=== PATIENT | male | born 1935 | race Caucasian/White ===

== ENCOUNTER 2017-01-17 15:05 | Outpatient (CLI) | payer MEDICARE ==
--- NOTE | 2017-01-17 16:09 | RAD ---
EXAM: LEFT ANKLE THREE VIEWS 01/17/17 HISTORY: Pain. COMPARISON: None. FINDINGS: Mild lateral soft tissue swelling. Joint spaces appear to be preserved. No fracture. Vascular calcif ications are identified. There are degenerative changes in the talonavicular joint space. IMPRESSION: Lateral soft tissue swelling. No fracture. POS: [facility]
== END 2017-01-17 15:06 | disposition home or self-care (01) ==
LOC: MADRAD 15:05
PROVIDERS: ATTEND Family Medicine
DX: M25.572 Pain in left ankle and joints of left foot (principal); M79.89 Other specified soft tissue disorders

== ENCOUNTER 2017-01-29 08:39 | Outpatient (CLI) | payer MEDICARE ==
[2017-01-29 09:15] LABS: #Basophils 0.1 thou/uL (0.0-0.2); #Eosinphils 0.5 thou/uL (0.0-0.7); #Lymphocytes 1.5 thou/uL (1.20-3.40); #Monocytes 0.7 thou/uL (0.11-0.59); #Neutrophils 3.4 thou/uL (1.40-6.50); %Basophils 2.4 % (0.0-1.0); %Eosinophils 7.9 % (0.0-10.0); %Lymphocytes 23.8 % (21.0-51.0); %Monocytes 11.5 % (0.0-10.0); %Neutrophils 54.5 % (42.0-75.0); Mean Corpuscular HGB CONC 32.6 g/dL (32.0-36.0); Mean Corpuscular Hemoglobin 32.1 pg (27.0-31.0); Mean Corpuscular Volume 98.5 fl (80.0-94.0); Mean Platelet Volume 7.4 fL (7.4-10.4); Platelet Count 203 thou/uL (130-400); RBC Distribution Width 13.3 % (11.5-14.5); Red Blood Cell (RBC) Count 4.06 mill/uL (4.70-6.10); White Blood Cell (WBC) Count 6.2 thou/uL (4.8-10.8)
[2017-01-29 09:55] LABS: ALT (SGPT) 14 U/L (8-55); AST (SGOT) 13 U/L (5-34); Albumin 3.8 g/dL (3.4-4.8); Alkaline Phosphatase 74 U/L (40-150); Anion Gap 13 mmol/L (10-20); BUN (Urea Nitrogen) 29 mg/dL (8.4-25.7); Bilirubin, Direct 0.3 mg/dL (0.1-0.3); Bilirubin, Total 0.6 mg/dL (0.2-1.2); Calc. Creatinine Clearance 0 mL/min (70-130); Calcium 9.1 mg/dL (7.8-10.44); Carbon Dioxide 24 mmol/L (23-31); Cardiac Risk 3.5 (Less than 4.5); Chloride 110 mmol/L (98-107); Cholesterol 112 mg/dl (< 200 Desired); Estimated GFR-MDRD 47; Glucose 114 mg/dL (83-110); HDL Cholesterol 32 mg/dL (>60 Neg Risk); LDL Cholesterol, Calculated 70 mg/dL; Potassium 4.2 mmol/L (3.5-5.1); Protein, Total 6.9 g/dL (5.8-8.1); Sodium 143 mmol/L (136-145); Triglycerides 51 mg/dL (Less than 150); Uric Acid 5.7 mg/dL (3.5-7.2)
== END 2017-01-29 08:40 ==
LOC: MADLABBHPM 08:39
PROVIDERS: ATTEND Family Medicine
DX: I48.91 Unspecified atrial fibrillation (principal); I10 Essential (primary) hypertension; M10.9 Gout, unspecified
CPT/HCPCS: 36415; 80048; 80061; 80076; 84550; 85025

== ENCOUNTER 2017-01-31 04:28 | Emergency (ER) | payer MEDICARE ==
[2017-01-31] MEDS ORDERED: Dexamethasone 10 MG/ML VIAL ONE ×2 (04:54→09:05)
[2017-01-31] MEDS ORDERED: methylPREDNISolone Sod Succ/PF 125 MG/2 ML VIAL ONE ×2 (04:54→09:05)
[2017-01-31] MEDS ORDERED: Benzonatate 100 MG CAP ONE (05:15)
[2017-01-31] MEDS ORDERED: Sodium Chloride 0.9% 1,000 ML BAG ONE (06:32)
--- NOTE | 2017-01-31 08:03 | RAD ---
CHEEST 1 VIEW: HISTORY: Dyspnea. COMPARISON: 08/30/15. FINDINGS: Cardiac silhouette is magnified and enlarged. Pulmonary vasculature is engorged with patchy bilater al perihilar and bibasilar infiltrates. Mediastinum is midline. No lobar consolidation or pneumoth orax are apparent. Metallic fragment over the right lung base is similar in appearance to the prior study. IMPRESSION: Congestive heart failure. POS: [facility]
[2017-01-31] MEDS ORDERED: Furosemide 40 MG/4 ML VIAL ONE (09:05)
== END 2017-01-31 06:10 | disposition home or self-care (01) ==
LOC: MADERS 04:28
DX: R06.02 Shortness of breath (principal); I48.91 Unspecified atrial fibrillation; I10 Essential (primary) hypertension; Z87.891 Personal history of nicotine dependence; Z79.899 Other long term (current) drug therapy
CPT/HCPCS: 71010; 94640; 96361; 96374; 96375; J1100; J1940; J2930; J7620

== ENCOUNTER 2017-01-31 08:31 | Emergency (ER) | payer MEDICARE ==
[2017-01-31 09:23] LABS: #Lymphocytes 0.8 thou/uL (1.20-3.40); #Monocytes 0.1 thou/uL (0.11-0.59); #Neutrophils 9.3 thou/uL (1.40-6.50); %Basophils 0.4 % (0.0-1.0); %Lymphocytes 7.5 % (21.0-51.0); %Monocytes 1.2 % (0.0-10.0); %Neutrophils 90.9 % (42.0-75.0); Hemoglobin 14.1 g/dL (14.0-18.0); Mean Corpuscular HGB CONC 33.3 g/dL (32.0-36.0); Mean Corpuscular Hemoglobin 32.3 pg (27.0-31.0); Mean Corpuscular Volume 96.9 fl (80.0-94.0); Mean Platelet Volume 7.7 fL (7.4-10.4); Platelet Count 203 thou/uL (130-400); RBC Distribution Width 13.4 % (11.5-14.5); Red Blood Cell (RBC) Count 4.38 mill/uL (4.70-6.10); White Blood Cell (WBC) Count 10.2 thou/uL (4.8-10.8)
[2017-01-31 09:34] LABS: INR-International Normal Ratio 1.7; Prothrombin Time 20.1 SEC (12.0-14.7)
[2017-01-31 09:44] LABS: ALT (SGPT) 16 U/L (8-55); AST (SGOT) 16 U/L (5-34); Alkaline Phosphatase 73 U/L (40-150); Anion Gap 15 mmol/L (10-20); BUN (Urea Nitrogen) 27 mg/dL (8.4-25.7); Bilirubin, Total 1.1 mg/dL (0.2-1.2); CK (CPK) 68 U/L (30-200); Calc. Creatinine Clearance 0 mL/min (70-130); Carbon Dioxide 18 mmol/L (23-31); Chloride 110 mmol/L (98-107); Estimated GFR-MDRD 51; Globulin 3.3 g/dL (2.4-3.5); Glucose 175 mg/dL (83-110); Magnesium 2.2 mg/dL (1.6-2.6); Potassium 4.1 mmol/L (3.5-5.1); Protein, Total 7.3 g/dL (5.8-8.1); Sodium 139 mmol/L (136-145)
[2017-01-31 09:47] LABS: CKMB 1.5 ng/mL (0-6.6); Troponin I 0.035 ng/mL (< 0.028)
[2017-01-31 09:53] LABS: Bilirubin Negative (Negative); Blood, Urine Small (Negative); Clarity Clear (Clear); Glucose, Urine (Dipstick) Negative (Negative); Leukocyte Negative (Negative); Nitrite Negative (Negative); Protein, Urine (Dipstick) Negative (Neg-Trace); Specific Gravity, Urine 1.015 (1.005-1.030); Urobilinogen 0.2 mg/dL (0.2-1.0); pH, Urine 5.5 (5.0-9.0)
[2017-01-31 09:59] LABS: Bacteria/HPF Rare-Few HPF (None Seen); Squamous Epithelial 0-3 HPF (0-3); WBC/HPF 0-3 HPF (0-3)
== END 2017-01-31 13:18 | disposition short-term general hospital (02) ==
LOC: MADERS 08:31
DX: I11.0 Hypertensive heart disease with heart failure (principal); I50.9 Heart failure, unspecified; I48.91 Unspecified atrial fibrillation; Z87.891 Personal history of nicotine dependence; Z79.899 Other long term (current) drug therapy
CPT/HCPCS: 51702; 71010; 80053; 81001; 82553; 83735; 83880; 84484; 85025; 85610; 85730; 87040; 93005; 94640; 94760; 96361; 96374; 96375; J1100; J1940; J2930; J7050; J7620

== ENCOUNTER 2017-02-11 07:54 | Outpatient (CLI) | payer MEDICARE ==
[2017-02-11 08:27] LABS: Anion Gap 17 mmol/L (10-20); BUN (Urea Nitrogen) 31 mg/dL (8.4-25.7); Calc. Creatinine Clearance 0 mL/min (70-130); Calcium 8.8 mg/dL (7.8-10.44); Carbon Dioxide 21 mmol/L (23-31); Chloride 110 mmol/L (98-107); Estimated GFR-MDRD 55; Glucose 108 mg/dL (83-110); Potassium 3.9 mmol/L (3.5-5.1); Sodium 144 mmol/L (136-145)
== END 2017-02-11 07:55 | disposition home or self-care (01) ==
LOC: MADLAB 07:54
PROVIDERS: ATTEND Specialist
DX: I50.9 Heart failure, unspecified (principal); I48.2 Chronic atrial fibrillation; Z79.899 Other long term (current) drug therapy
CPT/HCPCS: 36415; 80048

== ENCOUNTER 2017-05-15 08:05 | Outpatient (CLI) | payer MEDICARE ==
[2017-05-15 08:22] LABS: #Basophils 0.1 thou/uL (0.0-0.2); #Eosinphils 0.4 thou/uL (0.0-0.7); #Lymphocytes 1.6 thou/uL (1.20-3.40); #Monocytes 0.8 thou/uL (0.11-0.59); #Neutrophils 3.5 thou/uL (1.40-6.50); %Basophils 1.5 % (0.0-1.0); %Eosinophils 6.9 % (0.0-10.0); %Lymphocytes 24.7 % (21.0-51.0); %Monocytes 11.8 % (0.0-10.0); %Neutrophils 55.1 % (42.0-75.0); Hemoglobin 12.9 g/dL (14.0-18.0); Mean Corpuscular HGB CONC 31.4 g/dL (32.0-36.0); Mean Corpuscular Hemoglobin 31.4 pg (27.0-31.0); Mean Corpuscular Volume 100.1 fl (80.0-94.0); Mean Platelet Volume 7.7 fL (7.4-10.4); Platelet Count 193 thou/uL (130-400); RBC Distribution Width 13.3 % (11.5-14.5); White Blood Cell (WBC) Count 6.4 thou/uL (4.8-10.8)
[2017-05-15 09:10] LABS: ALT (SGPT) 14 U/L (8-55); AST (SGOT) 15 U/L (5-34); Albumin 3.7 g/dL (3.4-4.8); Alkaline Phosphatase 74 U/L (40-150); Anion Gap 13 mmol/L (10-20); BUN (Urea Nitrogen) 23 mg/dL (8.4-25.7); Bilirubin, Direct 0.4 mg/dL (0.1-0.3); Bilirubin, Total 0.9 mg/dL (0.2-1.2); Calc. Creatinine Clearance 0 mL/min (70-130); Calcium 8.8 mg/dL (7.8-10.44); Carbon Dioxide 25 mmol/L (23-31); Cardiac Risk 3.4 (Less than 4.5); Chloride 110 mmol/L (98-107); Cholesterol 119 mg/dl (< 200 Desired); Estimated GFR-MDRD 54; Glucose 110 mg/dL (83-110); HDL Cholesterol 35 mg/dL (>60 Neg Risk); LDL Cholesterol, Calculated 76 mg/dL; Potassium 3.7 mmol/L (3.5-5.1); Protein, Total 6.7 g/dL (5.8-8.1); Sodium 144 mmol/L (136-145); Triglycerides 42 mg/dL (Less than 150)
== END 2017-05-15 08:06 | disposition home or self-care (01) ==
LOC: MADLABBHPM 08:05
PROVIDERS: ATTEND Family Medicine
DX: N18.3 Chronic kidney disease, stage 3 (moderate) (principal); D63.1 Anemia in chronic kidney disease
CPT/HCPCS: 36415; 80048; 80061; 80076; 85025

== ENCOUNTER 2017-06-15 02:08 | Emergency (ER) | payer MEDICARE ==
[2017-06-15 03:08] LABS: #Basophils 0.1 thou/uL (0.0-0.2); #Eosinphils 0.3 thou/uL (0.0-0.7); #Lymphocytes 1.6 thou/uL (1.20-3.40); #Monocytes 0.7 thou/uL (0.11-0.59); %Basophils 1.4 % (0.0-1.0); %Eosinophils 3.4 % (0.0-10.0); %Lymphocytes 21.3 % (21.0-51.0); %Monocytes 9.3 % (0.0-10.0); %Neutrophils 64.6 % (42.0-75.0); Hemoglobin 13.4 g/dL (14.0-18.0); Mean Corpuscular HGB CONC 33.2 g/dL (32.0-36.0); Mean Corpuscular Hemoglobin 32.7 pg (27.0-31.0); Mean Corpuscular Volume 98.4 fl (80.0-94.0); Mean Platelet Volume 7.8 fL (7.4-10.4); Platelet Count 190 thou/uL (130-400); RBC Distribution Width 13.1 % (11.5-14.5); Red Blood Cell (RBC) Count 4.12 mill/uL (4.70-6.10); White Blood Cell (WBC) Count 7.7 thou/uL (4.8-10.8)
[2017-06-15 03:23] LABS: INR-International Normal Ratio 1.3; PTT 33.2 SEC (22.9-36.1); Prothrombin Time 16.7 SEC (12.0-14.7)
[2017-06-15 03:29] LABS: Anion Gap 17 mmol/L (10-20); BUN (Urea Nitrogen) 27 mg/dL (8.4-25.7); Calc. Creatinine Clearance 0 mL/min (70-130); Carbon Dioxide 25 mmol/L (23-31); Chloride 108 mmol/L (98-107); Estimated GFR-MDRD 55; Glucose 132 mg/dL (83-110); Potassium 3.6 mmol/L (3.5-5.1); Sodium 146 mmol/L (136-145)
[2017-06-15 03:30] LABS: Troponin I 0.047 ng/mL (< 0.028)
[2017-06-15 03:33] LABS: CKMB 1.8 ng/mL (0-6.6)
[2017-06-15] MEDS ORDERED: Furosemide 40 MG/4 ML VIAL ONE (03:41)
--- NOTE | 2017-06-15 08:49 | RAD ---
1 VIEW CHEST: Date: 06/15/17 HISTORY: Dyspnea. COMPARISON: 01/21/17. FINDINGS: Enlarged cardiac silhouette. Pulmonary vessels are prominent. Patchy interstitial opacities. There i s obscuration of the descending thoracic aorta and left hemidiaphragm. Left lower lobe infiltrate ca nnot be excluded. No pneumothorax. IMPRESSION: 1. Congestive heart failure. 2. Left lower lobe infiltrate. Continued surveillance. POS: [facility]
== END 2017-06-15 04:55 | disposition short-term general hospital (02) ==
LOC: MADERS 02:08
DX: I50.9 Heart failure, unspecified (principal); I48.91 Unspecified atrial fibrillation; I10 Essential (primary) hypertension; E78.00 Pure hypercholesterolemia, unspecified; Z87.891 Personal history of nicotine dependence; Z79.899 Other long term (current) drug therapy
CPT/HCPCS: 71010; 80048; 82553; 83880; 84484; 85025; 85610; 85730; 93005; 94760; 96374; J1940

== ENCOUNTER 2017-08-12 12:49 | Emergency (ER) | payer MEDICARE ==
[2017-08-12] MEDS ORDERED: Acetaminophen 500 MG TAB ONE (13:22)
[2017-08-12] MEDS ORDERED: Amoxicillin/Potassium Clav 500 MG TAB ONE (13:22)
[2017-08-12] MEDS ORDERED: Amoxicillin/Potassium Clav 875 MG TAB ONE (13:23)
--- NOTE | 2017-08-12 13:37 | RAD ---
PORTABLE CHEST ONE VIEW: Date: 08-12-17 Time: 1:04 p.m. History: Dyspnea. FINDINGS/IMPRESSION: Comparison made with exam of 01-31-17. The heart is enlarged. Tiny amount of metallic density in the right lower chest is again seen. The po ssibility of opacity in the retrocardiac region cannot be excluded. The remainder of the lung davis are otherwise clear. No pneumothoraces or effusions are identified. There is no evidence of asuncion pul monary edema. POS: [facility]
[2017-08-12 13:50] LABS: Anion Gap 18 mmol/L (10-20); BUN (Urea Nitrogen) 25 mg/dL (8.4-25.7); Calc. Creatinine Clearance 0 mL/min (70-130); Calcium 8.6 mg/dL (7.8-10.44); Carbon Dioxide 20 mmol/L (23-31); Chloride 107 mmol/L (98-107); Estimated GFR-MDRD 52; Glucose 213 mg/dL (83-110); Potassium 4.1 mmol/L (3.5-5.1); Sodium 141 mmol/L (136-145)
[2017-08-12 13:52] LABS: Eosinophils 1 % (0-10); Hemoglobin 13.8 g/dL (14.0-18.0); Lymphocytes 4 % (21-51); MDiff Complete? YES; Mean Corpuscular HGB CONC 32.6 g/dL (32.0-36.0); Mean Corpuscular Hemoglobin 31.6 pg (27.0-31.0); Monocytes 2 % (0-10); Neutrophil 83 % (42-75); PLT Morphology Comment Appears Adequate; Platelet Count 163 thou/uL (130-400); RBC Distribution Width 12.9 % (11.5-14.5); RBC Morphology Normal; Reactive Lymphocytes 10 % (0-10); Red Blood Cell (RBC) Count 4.36 mill/uL (4.70-6.10); White Blood Cell (WBC) Count 8.7 thou/uL (4.8-10.8)
[2017-08-12] MEDS ORDERED: Furosemide 40 MG TAB ONE (14:12)
== END 2017-08-12 14:20 | disposition home or self-care (01) ==
LOC: MADERS 12:49
DX: J11.1 Influenza due to unidentified influenza virus with other respiratory manifestations (principal); J20.9 Acute bronchitis, unspecified; I48.91 Unspecified atrial fibrillation; I11.0 Hypertensive heart disease with heart failure; I50.9 Heart failure, unspecified; I49.9 Cardiac arrhythmia, unspecified; Z87.891 Personal history of nicotine dependence; Z79.899 Other long term (current) drug therapy
CPT/HCPCS: 36415; 71010; 80048; 83880; 85025; J7620

== ENCOUNTER 2017-09-01 16:08 | Outpatient (CLI) | payer MEDICARE ==
--- NOTE | 2017-09-01 16:57 | RAD ---
TWO VIEWS CHEST: Comparison: 08-30-15 History: Chest wall pain on the right side after a fall. FINDINGS: Two views of the chest shows enlarged but stable cardiomediastinal silhouette. There is no evidence o f consolidation, mass, or pleural effusion. No displaced rib fracture is seen. Degenerative changes a re seen in the spine. IMPRESSION: Cardiomegaly without evidence of acute cardiopulmonary disease. POS: [facility]
--- NOTE | 2017-09-01 17:27 | CT ---
CT OF HEAD NONCONTRAST: Indication: Fall with facial injury. Comparison: 03-17-14 FINDINGS: No intracranial hemorrhage, mass effect, midline shift or ventriculomegaly. There is prominent soft t issue emphysema of the right face including the right orbit and right straightening press operator space. Osseous struc tures of the facial region are incompletely assessed on the basis of this exam due to incompletely im aging as well as patient motion. There is prominent opacification of the left maxillary sinus and sca ttered paranasal sinus mucosal thickening. IMPRESSION: 1. No acute intracranial hemorrhage or mass effect. 2. Prominent facial injury including the right orbit with associated orbital emphysema and deformity of the right orbital floor. Recommend dedicated CT of face to further characterize. Telephone call placed to Dr. Jamie Kim, and to the [place] [facility], where ER nurse stated he woul d contact Dr. Kim, at [phone] 09-01-17. POS: [facility]
--- NOTE | 2017-09-01 17:46 | CT ---
CT OF FACE NONCONTRAST: Indication: Post-traumatic facial injury, pain. FINDINGS: There is a right orbital floor fracture with associated prominent volume of retrobulbar emphysema. Th ere is also prominent periorbital soft tissue emphysema of the preseptal and bucca regions. Dissectin g air density is also present within the right hvac journeyman space and the right submandibular region. S cattered paranasal sinus opacification is present, some of which contains intrinsic density with lobu lar morphology. This may relate to an entity such as superimposed fungal sinusitis. The point lay ira intrao cular lenses are absent. There is no evidence of retrobulbar hemorrhage of significance visualized. N o displaced fracture of either zygomatic arch. Nasal bones are intact as are the pterygoid plates. No displaced fracture of the mandible visualized and the temporomandibular joints maintain appropriate alignment. IMPRESSION: 1. Right orbital floor fracture. There is prominent volume of right sided retrobulbar emphysema prese nt. 2. Prominent right facial soft tissue emphysema. Telephone call placed to Dr. Jamie Kim, and to the [place] [facility], where ER nurse stated he woul d contact Dr. Kim, at [phone] 09-01-17. POS: [facility]
== END 2017-09-01 16:09 | disposition home or self-care (01) ==
LOC: MADRAD 16:08
PROVIDERS: ATTEND Family Medicine
DX: S29.9XXA Unspecified injury of thorax, initial encounter (principal); S09.93XA Unspecified injury of face, initial encounter; S02.31XA Fracture of orbital floor, right side, initial encounter for closed fracture; J43.8 Other emphysema
CPT/HCPCS: 70450; 70486; 71046

== ENCOUNTER 2018-11-15 18:16 | Emergency (ER) | payer MEDICARE ==
[2018-11-15 18:31] LABS: #Basophils 0.2 thou/uL (0.0-0.2); #Eosinphils 0.4 thou/uL (0.0-0.7); #Lymphocytes 1.6 thou/uL (1.20-3.40); #Monocytes 0.8 thou/uL (0.11-0.59); #Neutrophils 3.9 thou/uL (1.40-6.50); %Basophils 2.2 % (0.0-1.0); %Eosinophils 5.2 % (0.0-10.0); %Lymphocytes 23.4 % (21.0-51.0); %Monocytes 11.9 % (0.0-10.0); %Neutrophils 57.4 % (42.0-75.0); Hemoglobin 13.6 g/dL (14.0-18.0); Mean Corpuscular HGB CONC 31.4 g/dL (32.0-36.0); Mean Corpuscular Hemoglobin 30.4 pg (27.0-31.0); Mean Corpuscular Volume 96.9 fL (78.0-98.0); Mean Platelet Volume 6.6 fL (7.4-10.4); Platelet Count 199 thou/uL (130-400); RBC Distribution Width 13.3 % (11.5-14.5); Red Blood Cell (RBC) Count 4.48 mill/uL (4.70-6.10); White Blood Cell (WBC) Count 6.8 thou/uL (4.8-10.8)
--- NOTE | 2018-11-15 18:40 | RAD ---
FPortable chest: HISTORY: Dyspnea COMPARISON: 08/12/2017 FINDINGS:There is cardiomegaly. Mild vascular congestion. No focal infiltrate or significant effusion . Similar findings were noted on prior exam. IMPRESSION:Cardiomegaly and mild vascular congestion.
[2018-11-15 18:50] LABS: ALT (SGPT) 12 U/L (8-55); AST (SGOT) 14 U/L (5-34); Albumin 4.3 g/dL (3.4-4.8); Alkaline Phosphatase 88 U/L (40-150); Anion Gap 18 mmol/L (10-20); BUN (Urea Nitrogen) 29 mg/dL (8.4-25.7); Bilirubin, Total 0.9 mg/dL (0.2-1.2); Calc. Creatinine Clearance 0 mL/min (70-130); Calcium 9.5 mg/dL (7.8-10.44); Carbon Dioxide 24 mmol/L (23-31); Chloride 108 mmol/L (98-107); Estimated GFR-MDRD 35; Globulin 3.5 g/dL (2.4-3.5); Glucose 112 mg/dL (83-110); Protein, Total 7.8 g/dL (5.8-8.1); Sodium 146 mmol/L (136-145)
[2018-11-15 19:07] LABS: CKMB 1.3 ng/mL (0-6.6)
[2018-11-15] MEDS ORDERED: Aspirin Chewable 81 MG TAB ONE (19:51)
[2018-11-15] MEDS ORDERED: Nitroglycerin 2% Ointment 1 INCH/1 GM Packet ONE (19:51)
[2018-11-15] MEDS ORDERED: Furosemide 40 MG/4 ML VIAL ONE (19:51)
== END 2018-11-15 20:39 | disposition short-term general hospital (02) ==
LOC: MADERS 18:16
DX: I11.0 Hypertensive heart disease with heart failure (principal); I50.9 Heart failure, unspecified; I48.91 Unspecified atrial fibrillation; F41.9 Anxiety disorder, unspecified; Z87.891 Personal history of nicotine dependence; Z79.891 Long term (current) use of opiate analgesic; Z79.899 Other long term (current) drug therapy
CPT/HCPCS: 71045; 80053; 82553; 83880; 84484; 85025; 93005; 96374; J1940

== ENCOUNTER 2019-06-21 11:15 | Emergency (ER) | payer MEDICARE ==
[2019-06-21] MEDS ORDERED: Acetaminophen 325 MG TAB ONE (12:00)
[2019-06-21 12:12] LABS: Bilirubin Small (Negative); Blood, Urine Large (Negative); Glucose, Urine (Dipstick) Negative (Negative); Leukocyte Negative (Negative); Nitrite Negative (Negative); Protein, Urine (Dipstick) 30 mg/dL (Neg-Trace); Urobilinogen 0.2 mg/dL (Less than 2)
--- NOTE | 2019-06-21 12:12 | RAD ---
PORTABLE CHEST 1 VIEW: Date: 06/21/19 Time: 1148 hours HISTORY: Cough. FINDINGS/IMPRESSION: Comparison made with exam of 11/15/18. Interval placement of left-sided pacemaker device is seen. The heart is enlarged. There is pulmonary vascular congestion. There is an opacity in the right lower lung. No pneumothoraces or large effusion s are seen. A follow-up exam should be obtained to exclude mass. POS: [facility]
[2019-06-21 12:17] LABS: INR-International Normal Ratio 1.7; PTT 37.1 SEC (22.9-36.1); Prothrombin Time 20.1 SEC (12.0-14.7)
[2019-06-21 12:20] LABS: ALT (SGPT) 16 U/L (8-55); AST (SGOT) 15 U/L (5-34); Albumin 3.7 g/dL (3.4-4.8); Alkaline Phosphatase 54 U/L (40-110); Anion Gap 17 mmol/L (10-20); BUN (Urea Nitrogen) 40 mg/dL (8.4-25.7); Bilirubin, Total 2.8 mg/dL (0.2-1.2); CK (CPK) 68 U/L (30-200); Calc. Creatinine Clearance 0 mL/min (70-130); Calcium 8.8 mg/dL (7.8-10.44); Carbon Dioxide 20 mmol/L (23-31); Chloride 108 mmol/L (98-107); Estimated GFR-MDRD 39; Globulin 2.8 g/dL (2.4-3.5); Glucose 165 mg/dL (83-110); Potassium 4.1 mmol/L (3.5-5.1); Protein, Total 6.5 g/dL (5.8-8.1); Sodium 141 mmol/L (136-145)
[2019-06-21 12:20] LABS: Clarity Hazy (Clear); RBC/HPF Greater than 50 HPF (0-3); WBC/HPF 0-3 HPF (0-3)
[2019-06-21 12:21] LABS: Bacteria/HPF Rare-Few HPF (None Seen)
[2019-06-21 12:21] LABS: Band 11 % (5-11); Eosinophils 2 % (0-10); Hemoglobin 12.7 g/dL (14.0-18.0); Lymphocytes 3 % (21-51); MDiff Complete? YES; Mean Corpuscular HGB CONC 30.8 g/dL (32.0-36.0); Mean Corpuscular Hemoglobin 29.9 pg (27.0-31.0); Mean Corpuscular Volume 97.3 fL (78.0-98.0); Mean Platelet Volume 7.1 fL (7.4-10.4); Monocytes 4 % (0-10); Neutrophil 80 % (42-75); Platelet Count 136 thou/uL (130-400); Platelet Morphology Comment Appears Adequate; RBC Distribution Width 13.5 % (11.5-14.5); Red Blood Cell (RBC) Count 4.23 mill/uL (4.70-6.10); White Blood Cell (WBC) Count 21.1 thou/uL (4.8-10.8)
[2019-06-21 12:28] LABS: Lipase Less than 4 U/L (8-78)
[2019-06-21 12:37] LABS: CKMB 1.7 ng/mL (0-6.6)
== END 2019-06-21 13:20 | disposition short-term general hospital (02) ==
LOC: MADERS 11:15
DX: A41.9 Sepsis, unspecified organism (principal); J18.9 Pneumonia, unspecified organism; I11.0 Hypertensive heart disease with heart failure; I50.9 Heart failure, unspecified; I49.9 Cardiac arrhythmia, unspecified; I48.91 Unspecified atrial fibrillation; E78.00 Pure hypercholesterolemia, unspecified; F41.9 Anxiety disorder, unspecified; Z87.891 Personal history of nicotine dependence
CPT/HCPCS: 36415; 71045; 80053; 81003; 81015; 82550; 82553; 83605; 83690; 83880; 84484; 85025; 85610; 85730; 87040; 87070; 87205; 87804; 93005; 94760; 96365; J1956

== ENCOUNTER 2019-07-05 14:50 | Outpatient (CLI) | payer MEDICARE ==
--- NOTE | 2019-07-05 15:16 | RAD ---
EXAM: Chest PA and lateral: HISTORY: Cough COMPARISON: 06/21/2019 FINDINGS: Stable left-sided transvenous defibrillator. Heart: Persistent cardiomegaly. Aorta: Unremarkable Pulmonary vessels: Mildly prominent Costophrenic angles: Visualized costophrenic angles demonstrate bilateral pleural effusions. Lungs: Patchy interstitial and alveolar opacities. Pneumothorax: No pneumothorax Osseous structures: No osseous abnormalities IMPRESSION: Cardiomegaly. Pulmonary vascular prominence. Pleural effusion. Patchy interstitial and alveolar opaci ties. Congestive heart failure.
== END 2019-07-05 14:51 | disposition home or self-care (01) ==
LOC: MADRAD 14:50
PROVIDERS: ATTEND Family Medicine
DX: J18.9 Pneumonia, unspecified organism (principal); I51.7 Cardiomegaly; J90 Pleural effusion, not elsewhere classified; I50.9 Heart failure, unspecified; R91.8 Other nonspecific abnormal finding of lung field
CPT/HCPCS: 71046

== ENCOUNTER 2019-12-10 14:28 | Inpatient (IN) | payer MEDICARE ==
[2019-12-10] MEDS ORDERED: Acetaminophen 500 MG TAB ONE ×2 (14:51)
[2019-12-10 15:34] LABS: #Basophils 0.1 thou/uL (0.0-0.2); #Lymphocytes 0.3 thou/uL (1.20-3.40); #Monocytes 0.5 thou/uL (0.11-0.59); %Basophils 1.1 % (0.0-1.0); %Eosinophils 0.2 % (0.0-10.0); %Lymphocytes 3.7 % (21.0-51.0); %Monocytes 5.2 % (0.0-10.0); %Neutrophils 89.9 % (42.0-75.0); Hemoglobin 11.6 g/dL (14.0-18.0); Mean Corpuscular HGB CONC 31.8 g/dL (32.0-36.0); Mean Corpuscular Hemoglobin 29.4 pg (27.0-31.0); Mean Corpuscular Volume 92.6 fL (78.0-98.0); Mean Platelet Volume 6.4 fL (7.4-10.4); Platelet Count 158 thou/uL (130-400); RBC Distribution Width 12.9 % (11.5-14.5); Red Blood Cell (RBC) Count 3.95 mill/uL (4.70-6.10); White Blood Cell (WBC) Count 8.9 thou/uL (4.8-10.8)
[2019-12-10 15:38] LABS: Bilirubin Negative (Negative); Blood, Urine Moderate (Negative); Clarity Cloudy (Clear); Glucose, Urine (Dipstick) Negative (Negative); Leukocyte Large (Negative); Nitrite Positive (Negative); Protein, Urine (Dipstick) 100 mg/dL (Neg-Trace); Urobilinogen 0.2 mg/dL (Less than 2)
[2019-12-10 15:40] LABS: Squamous Epithelial 0-3 HPF (0-3); WBC/HPF Greater Than 50 HPF (0-3)
[2019-12-10 15:41] LABS: Bacteria/HPF Rare-Few HPF (None Seen); RBC/HPF 21-50 HPF (0-3)
[2019-12-10] MEDS ORDERED: Sodium Chloride 0.9% 100 ML ONE ×2 (15:44→17:37)
[2019-12-10] MEDS ORDERED: Sodium Chloride 0.9% 1,000 ML ONE (15:44)
[2019-12-10] MEDS ORDERED: cefTRIAXone\\ROCEPHIN 2 GM VIAL ONE (15:44)
[2019-12-10 15:48] LABS: ALT (SGPT) 15 U/L (8-55); AST (SGOT) 16 U/L (5-34); Albumin 3.6 g/dL (3.4-4.8); Alkaline Phosphatase 71 U/L (40-110); Anion Gap 16 mmol/L (10-20); BUN (Urea Nitrogen) 24 mg/dL (8.4-25.7); Calc. Creatinine Clearance 0 mL/min (70-130); Calcium 8.6 mg/dL (7.8-10.44); Carbon Dioxide 24 mmol/L (23-31); Chloride 102 mmol/L (98-107); Estimated GFR-MDRD 42; Globulin 3.6 g/dL (2.4-3.5); Glucose 160 mg/dL (83-110); Potassium 3.8 mmol/L (3.5-5.1); Protein, Total 7.2 g/dL (5.8-8.1); Sodium 138 mmol/L (136-145)
--- NOTE | 2019-12-10 16:16 | RAD ---
CHEST ONE VIEW: 12/10/19 HISTORY: Fever. COMPARISON: Radiograph 07/05/19. FINDINGS: Heart size is enlarged. Mild background pulmonary edema. Cardiac device is similar. No pneumothorax. Moderate degenerative changes of the both acromioclavicular joints. No acute osseous abnormality. IMPRESSION: Cardiomegaly and moderate pulmonary edema. POS: [facility]
--- NOTE | 2019-12-10 16:23 | RAD ---
LEFT HIP TWO VIEW: 12/10/19 HISTORY: Injury. COMPARISON: None. FINDINGS: Moderate vascular calcifications. Mild joint space narrowing. Moderate acetabular osteophytes. No acute displaced fracture or malalignment. Left obturator ring is intact. IMPRESSION: Degenerative changes. No acute osseous abnormality. POS: [facility]
--- NOTE | 2019-12-10 16:25 | RAD ---
LUMBAR SPINE TWO VIEWs: 12/10/19 INDICATION: Back pain. COMPARISON: None. FINDINGS: No acute fracture or subluxation is evident. There is moderate spondylosis of the lumbar spine. there is bilateral parts defects at L5. There is grade I anterolisthesis. There are vascular calcification s of the aortic arch. IMPRESSION: 1. 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 2. Moderate to severe spondylosis of the lumbar spine. POS: [facility]
[2019-12-10] MEDS ORDERED: Ibuprofen 600 MG TAB ONE (16:46)
[2019-12-10] MEDS ORDERED: Vancomycin 1.5 GRAM/300 ML BAG 1.5 GM/300 ML BAG ONE (17:37)
[2019-12-10] MEDS ORDERED: Vancomycin HCl 500 MG VIAL ONE (17:37)
[2019-12-10 19:49] VITALS: BMI 23.8
[2019-12-10] MEDS ORDERED: Bisacodyl 10 MG SUPP PR PRN (21:10)
[2019-12-10] MEDS ORDERED: Ondansetron ODT 4 MG TAB SL PRN (21:10)
[2019-12-10] MEDS ORDERED: Polyethylene Glycol 3350 17 GM Packet PO PRN (21:14)
[2019-12-10] MEDS ORDERED: Sodium Chloride 0.65% Nasal 44 ML BOT EA NARE PRN (21:15)
[2019-12-10] MEDS ORDERED: Sodium Chloride 0.9% 1,000 ML IV SCH (21:15)
[2019-12-10] MEDS ORDERED: Mirtazapine 15 MG TAB PO SCH (21:45)
[2019-12-10] MEDS ORDERED: Melatonin 3 MG TAB PO SCH (21:45)
[2019-12-11 05:38] LABS: #Basophils 0.1 thou/uL (0.0-0.2); #Eosinphils 0.1 thou/uL (0.0-0.7); #Lymphocytes 0.8 thou/uL (1.20-3.40); #Monocytes 0.6 thou/uL (0.11-0.59); #Neutrophils 5.3 thou/uL (1.40-6.50); %Basophils 1.4 % (0.0-1.0); %Eosinophils 1.2 % (0.0-10.0); %Lymphocytes 11.2 % (21.0-51.0); %Monocytes 8.9 % (0.0-10.0); %Neutrophils 77.4 % (42.0-75.0); Hemoglobin 10.2 g/dL (14.0-18.0); Mean Corpuscular HGB CONC 32.2 g/dL (32.0-36.0); Mean Corpuscular Hemoglobin 29.9 pg (27.0-31.0); Mean Corpuscular Volume 92.8 fL (78.0-98.0); Mean Platelet Volume 6.7 fL (7.4-10.4); Platelet Count 120 thou/uL (130-400); Red Blood Cell (RBC) Count 3.41 mill/uL (4.70-6.10); White Blood Cell (WBC) Count 6.8 thou/uL (4.8-10.8)
[2019-12-11 05:54] LABS: Anion Gap 12 mmol/L (10-20); BUN (Urea Nitrogen) 27 mg/dL (8.4-25.7); Calc. Creatinine Clearance 41 mL/min (70-130); Calcium 7.9 mg/dL (7.8-10.44); Carbon Dioxide 24 mmol/L (23-31); Chloride 103 mmol/L (98-107); Estimated GFR-MDRD 42; Glucose 101 mg/dL (83-110); Potassium 3.4 mmol/L (3.5-5.1); Sodium 136 mmol/L (136-145)
[2019-12-11] MEDS: Spironolactone 25 MG TAB PO SCH (08:06)
[2019-12-11] MEDS: Carvedilol 6.25 MG TAB PO SCH ×2 (08:07→16:34)
[2019-12-11] MEDS: Fluticasone Propionate Nasal Spray 16 gm Bottle NASAL SCH (08:07)
[2019-12-11] MEDS: Famotidine 20 MG TAB PO SCH ×2 (08:07→21:19)
[2019-12-11] MEDS: Apixaban 5 MG TAB PO SCH ×2 (08:07→21:18)
[2019-12-11] MEDS: Furosemide 40 MG TAB PO SCH (08:07)
[2019-12-11] MEDS: Multivit, Therapeutic 1 TAB PO SCH (08:07)
[2019-12-11] MEDS: Dutasteride 0.5 MG CAP PO SCH (08:07)
[2019-12-11] MEDS: Tamsulosin HCl 0.4 MG CAP PO SCH (08:07)
[2019-12-11] MEDS: Acetaminophen 325 MG TAB PO PRN ×2 (09:53→16:34)
[2019-12-11] MEDS ORDERED: cefTRIAXone\\ROCEPHIN 2 GM in Sodium Chloride 0.9% 100 ML IVPB SCH (16:00)
--- NOTE | 2019-12-11 16:51 | HP ---
The patient was admitted on the late afternoon of 12/10/2019. CHIEF COMPLAINT: Fever and a fall. HISTORY OF PRESENT ILLNESS: The patient is an 84-year-old white male who has a history of hypertension, cardiomyopathy, chronic atrial fibrillation, for which he is on Eliquis. He also has obstructive sleep apnea, for which he uses a CPAP. He has urinary retention and has a suprapubic catheter that was placed by CT guidance on 11/03 and had been recently changed out. He has been treated in the past for urinary tract infection. He lives at home where he ambulates with the use of a walker. His serves as his primary caregiver. The patient said that he thought he had been doing very well. He had just showered and gotten out of the shower and fell and hit his left shoulder on the sink. He did not think he was injured. He did not hit his head. He did not lose consciousness. After a couple of hours, he got very weak and apparently began running a fever up to 102.9. He was brought to the emergency room where he was evaluated there. His blood pressure was in the 90 systolic. His pulse was in the 70 and 80s, and he had a temperature of 102.3. He did not appear septic on exam. He was alert and talkative. His lab studies showed a sodium of 138, potassium of 3.9, BUN 24, creatinine 1.6 with a GFR of 42, glucose 160, albumin 3.6, bilirubin 1. His H and H were 11.6 and 36.6 with a white cell count of 8900 with 90% segs, 4% lymphocytes , and a platelet count of 158,000. His cath UA from the suprapubic catheter shows a specific gravity of 1.020, nitrite was positive, rbc's were 20 to 50, wbc's too numerous to count. The patient had a chest x-ray, which showed cardiomegaly, and some pulmonary vascular congestion. His LS spine series showed spondylosis and bilateral pars defect at L5 causing a grade 1 anterior listhesis. The chest x- ray also showed that he had advanced arthritis of the AC joint and the glenohumeral joint. The patient had 2 blood cultures drawn and he was then started on a low infusion of fluids at 30 mL per hour or just to keep open rate and was started on Rocephin and vancomycin. The patient was seen on the morning of 12/11/2019. He said he was feeling good. He was just sore and he thinks it is from the fall. He has not had any more fever. He has not complained of any shortness of breath. PAST HISTORY: CT-guided placement of a suprapubic catheter on 11/04/2019. Hospitalized following a fall from 09/06/2019 until 09/10/2019. He had sustained a nondisplaced fracture of the right femoral neck for which he underwent an open reduction and internal fixation on 09/08. He was then hospitalized at [facility] for extended care from 09/10 to 09/27. The patient has cardiomyopathy that is nonischemic. His echocardiogram in June 2019 showed an ejection fraction of 35% to 45%. Heart cath on 01/31/2017, showed reduced left ventricular systolic function and no occlusive coronary artery disease. Previous echocardiogram showed global hypokinesis of the left ventricle and biatrial enlargement that was severe. The patient has hypertension. He was hospitalized at the [facility] in June 2019 for right lower lobe pneumonia. 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 The patient has obstructive sleep apnea, for which he sleeps under a CPAP. The patient has had a tonsillectomy, cholecystectomy, bladder surgery, endoscopic sinus surgery in November 2017, biventricular AICD placement in November 2018, chronic atrial fibrillation rate controlled and on Eliquis, glaucoma. PRESENT MEDICATIONS: 1. Acetaminophen 325 mg 2 every 6 hours as needed. 2. Eliquis 5 mg b.i.d. 3. Carvedilol 6.25 mg b.i.d. 4. Avodart 0.5 mg daily. 5. Famotidine 20 mg b.i.d. 6. Uloric 40 mg q.h.s. 7. Flonase 2 sprays in each nostril daily. 8. Furosemide 40 mg daily. 9. Latanoprost 0.005% one drop left eye at bedtime. 10. Melatonin 6 mg at h.s. 11. Mirtazapine 30 mg q.h.s. 12. Multivitamin daily. 13. Zofran orally disintegrating tablets 4 mg every 6 hours p.r.n. 14. MiraLAX 17 g in 8 ounces of water daily as needed. 15. Entresto one b.i.d. 16. Nasal saline p.r.n. 17. Spironolactone 12.5 mg daily. 18. Tamsulosin 0.4 mg q.h.s. ALLERGIES: NO KNOWN ALLERGIES. REVIEW OF SYSTEMS: GENERAL: The patient said that he has not had any recent change in his weight. HEAD AND NECK: No complaints. He has problems with some nasal congestion periodically for which he is on the nasal spray. CARDIOVASCULAR: No chest pain. PULMONARY: No shortness of breath. GI: No nausea or vomiting. No abdominal pain. Intermittent problems with constipation that are controlled. : The patient has a history of BPH and eventual urinary retention requiring a suprapubic catheter. NEUROPSYCHIATRIC: No complaints. ACTIVITIES OF DAILY LIVING: The patient said he is able to dress himself and shower himself. He gets around with the use of a walker with wheels. He lives with his , who is his primary caregiver, who assists him with all his instrumental ADLs. HABITS: Alcohol, none. Tobacco none. SOCIAL HISTORY: The patient is , lives with his . CODE STATUS: DNR. PHYSICAL EXAMINATION: GENERAL: Shows a very pleasant 84-year-old white male, who is alert and talkative, and appears in no distress. VITAL SIGNS: His temperature is 97.8, pulse 82, respirations 18, O2 saturation 97% on room air, blood pressure 99/54. His weight is 177.8. HEENT: Head is normocephalic and atraumatic. Eyes, pupils are equal, round, and reactive. Ears are normal. Mouth and throat normal. The patient has many teeth that are missing. NECK: Carotids are equal and strong. No bruits. Thyroid not enlarged. LUNGS: Clear. HEART: Regular rate. CHEST: The patient has AICD pacemaker in the left upper anterior chest. ABDOMEN: Soft. No organomegaly. No areas of tenderness. GENITOURINARY: The patient has a suprapubic catheter in the hypogastric midline. There is no surrounding redness. There is a 22-Belarusian catheter present. EXTREMITIES: Lower extremities, no edema. The patient has some atrophy of the left lower leg and difficulty dorsiflexing the left foot secondary to polio in childhood. NEUROLOGICAL: He is alert and oriented x3 and recognized me and knows that he is in the hospital. IMPRESSION: 1. Urinary tract infection. a. Presenting with fever of 102.9. b. Presently afebrile. Blood cultures, no growth. Urine culture pending as of 12/11/2019. 2. Nonischemic cardiomyopathy. a. Last echocardiogram in June 2019 showed ejection fraction of 35% to 45% with bilateral severe enlargement of the atriums. b. Heart catheterization in 01/2017 showed no occlusive coronary artery disease. c. Status post automatic implantable cardioverter-defibrillator pacemaker placement. d. No evidence of acute congestive heart failure on exam. 3. Chronic atrial fibrillation. a. Rate control. b. On Eliquis. 4. Obstructive sleep apnea, for which he is on continuous positive airway pressure when sleeping. 5. Urinary retention. a. Status post CT-guided suprapubic catheter placement on 11/04/2019. b. Catheter changed out on admission in the emergency room on 11/08. 6. 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 7. Low back pain secondary to spondylosis and recent fall. 8. Fall on 12/10/2019 with complaint of shoulder pain. a. On exam, there was no bruising. No areas of point tenderness. b. 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 PLAN: The patient has been admitted to the hospital and started on IV vancomycin and ceftriaxone for presumptive urinary tract infection. He has had no more fever. The blood cultures have no growth. Urine culture is pending. We will stop the keep open rate of the saline, but keep IV access for continuation of the antibiotics. We will have Physical Therapy work with him due to the recent fall. We will continue his routine medications, see orders. Code status is DNR. Job ID: [id number] [facility]
[2019-12-11] MEDS ORDERED: Vancomycin HCl 1 GM in Sodium Chloride 0.9% 250 ML 250 ML IVPB SCH (18:00)
[2019-12-11] MEDS ORDERED: Latanoprost 0.005% Ophth Soln 2.5 ml Bottle L EYE SCH (21:00)
[2019-12-11] MEDS ORDERED: Melatonin 3 MG TAB PO SCH (21:00)
[2019-12-11] MEDS ORDERED: Febuxostat 40 MG TAB PO SCH (21:00)
[2019-12-11] MEDS ORDERED: Mirtazapine 15 MG TAB PO SCH (21:00)
[2019-12-12] MEDS: Acetaminophen 325 MG TAB PO PRN ×2 (00:07→07:58)
[2019-12-12 05:50] LABS: Band 32 % (5-11); Eosinophils 1 % (0-10); Hemoglobin 10.3 g/dL (14.0-18.0); Lymphocytes 16 % (21-51); MDiff Complete? YES; Mean Corpuscular Hemoglobin 29.6 pg (27.0-31.0); Mean Corpuscular Volume 92.4 fL (78.0-98.0); Mean Platelet Volume 6.9 fL (7.4-10.4); Monocytes 5 % (0-10); Neutrophil 46 % (42-75); Platelet Count 127 thou/uL (130-400); RBC Distribution Width 13.1 % (11.5-14.5); White Blood Cell (WBC) Count 8.1 thou/uL (4.8-10.8)
[2019-12-12 05:58] LABS: Anion Gap 12 mmol/L (10-20); BUN (Urea Nitrogen) 24 mg/dL (8.4-25.7); Calc. Creatinine Clearance 47 mL/min (70-130); Calcium 7.5 mg/dL (7.8-10.44); Carbon Dioxide 21 mmol/L (23-31); Chloride 108 mmol/L (98-107); Estimated GFR-MDRD 48; Glucose 116 mg/dL (83-110); Potassium 3.3 mmol/L (3.5-5.1); Sodium 138 mmol/L (136-145)
[2019-12-12] MEDS: Carvedilol 6.25 MG TAB PO SCH (07:58)
[2019-12-12] MEDS: Famotidine 20 MG TAB PO SCH (07:58)
[2019-12-12] MEDS: Dutasteride 0.5 MG CAP PO SCH (07:58)
[2019-12-12] MEDS: Furosemide 40 MG TAB PO SCH (07:58)
[2019-12-12] MEDS: Fluticasone Propionate Nasal Spray 16 gm Bottle NASAL SCH (07:58)
[2019-12-12] MEDS: Spironolactone 25 MG TAB PO SCH (07:59)
[2019-12-12] MEDS: Apixaban 5 MG TAB PO SCH (07:59)
[2019-12-12] MEDS: Multivit, Therapeutic 1 TAB PO SCH (07:59)
[2019-12-12] MEDS: Tamsulosin HCl 0.4 MG CAP PO SCH (07:59)
[2019-12-12] MEDS ORDERED: Acetaminophen 325 MG TAB PO PRN (09:05)
[2019-12-12 11:20] VITALS: BP 94/52; TEMP 99.2
--- NOTE | 2019-12-12 11:36 | PRG ---
DATE OF SERVICE: 12/12/2019 SUBJECTIVE: The patient has been up with his walker and he is now sitting down on the seat of the walker resting. He said he is doing okay, just feels kind of achy. He has used the Incapmar pump providing moist heat to his low back, which he said helped. OBJECTIVE: GENERAL: The patient is sitting up in a chair. He is alert, talkative, does not appear in any acute distress. VITAL SIGNS: His temp during the night audrey to 102.6. This morning, it is 99.5. His pulse is 82, respirations 16, O2 saturation 96% on room air, blood pressure 111/59. LUNGS: Clear. HEART: Has an irregularly irregular rhythm. EXTREMITIES: Lower extremities have no edema. There is no bruising over the back of the shoulders. LABORATORY DATA: His lab studies this morning shows an H and H of 10.3 and 32.0 with a white blood cell count of 8100 with 46% segs, 32% bands, 16% lymphocytes. Platelet count was 127,000. Sodium is 138, potassium 3.3, BUN 24, creatinine 1.4 , GFR up to 48, glucose 116. The patient's initial 2 blood cultures were reported out as negative, the subsequent culture showed that one of the two grew a Staph aureus, probable methicillin sensitive Staph aureus. Culture and sensitivity to follow. The 2nd blood culture is now growing a gram-positive cocci. 2/2 cultures are positive. The sensitivity and culture on both of these are pending. Two blood cultures were drawn again yesterday on 12/11/2019. Results of these are pending. His urine culture just shows the young culture, reports are pending. ASSESSMENT: 1. Urinary tract infection/pyelonephritis. a. Presenting with a temperature of 102.9. b. Temperature persists up to 102.7 as of 12/11. c. Urine culture pending as of 12/11. 2. Bacteremia. a. Initial blood cultures from 12/10/19 growing gram-positive cocci, one showing methicillin-susceptible staphylococcus aureus. Further identification pending. b. Repeat blood cultures drawn on 12/10. Results pending. c. Etiology not known. 3. Nonischemic cardiomyopathy. a. Last echocardiogram June 2019 showed ejection fraction of 35% to 45% with bilateral severe enlargement of the atrium. The heart cath in January 2017 showed no occlusive coronary artery disease. b. Status post automatic implantable cardioverter-defibrillator pacemaker placement. c. No evidence of acute congestive heart failure as of 12/11. 4. Chronic atrial fibrillation. a. Rate control. b. On Eliquis. 5. Obstructive sleep apnea, for which he is on continuous positive airway pressure when sleeping. 6. Urinary retention. a. Status post CT-guided suprapubic catheter placement on 11/04/19. Catheter changed out 12/07/19. b. Catheter changed out on admission in the emergency room on 12/10/19. c. Urine this morning is clear, lightly yellow color as of 12/11. 7. 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 8. Low back pain with history of lumbar spondylosis and recent fall. 9. Fall on 12/10/2019 with complaint of left shoulder pain. a. On exam, no evidence of any bruising or point tenderness. b. 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 PLAN: We will continue the vancomycin and Rocephin The culture of the urine is pending. The etiology of this bacteremia is at this point not known. Will need echocardiogram to ensure there is no vegetation in the heart. Presently patient looks like he is he is doing okay and his fever is down to 99.7. Anticipate that he will need to be transferred for echocardiogram and ID consult. Job ID: [id number] [facility]
--- NOTE | 2019-12-13 06:25 | PQF ---
[employer] Crystal Reports Winform ViewerHarper, Fabio SimmsFRANCISCO Copeland MD [id number] CLINICAL DOCUMENTATION CLARIFICATION FORM: POST DISCHARGE Addendum to original discharge summary date: ___12/12/19 Late entry note date: __12/13/19 DATE: 12/13/2019 ATTN: Francisco Kim Please exercise your independent, professional judgment in responding to the clarification form. Clinical indicators are provided on the bottom of this form for your review Please check appropriate box(es): [ ] Sepsis [ y] Bacteremia [ ] Localized infection without sepsis [ ] Other diagnosis [ ] Unable to determine In addition, please specify: Present on Admission (POA): [ y ] Yes [ ] No [ ] Unable to determine For continuity of documentation, please document condition throughout progress notes and discharge summary. Thank You. CLINICAL INDICATORS - SIGNS / SYMPTOMS / LABS Bacteremia, initial blood cultures from 12/09 growing gram-positive cocci, one showing methicillin-susceptible staphylococcus aureus. Repeat blood cultures drawn on 12/10. Results pending. Etiology not known - Progress note dated 12/11 by Francisco Brown UTI, presents with a fever of 102.9 - H and P dated 12/09 by Francisco Brown The etiology of this bacteremia is at this point not known. Will need echocardiogram to ensure there is no vegetation in the heart - Progress note dated 12/11 by Francisco Brown RISK FACTORS UTI/pyelonephritis - Progress note dated 12/11 by Francisco Brown TREATMENTS: IV Rocephin from 12/09 to 12/11 - Medications IV Vancomycin from 12/09 to 12/11 - Medications IV fluids from 12/10 to 12/11 - Medications (This form is maintained as a part of the permanent medical record) 2014 [facility]. All Rights Reserved [email or web address]
--- NOTE | 2019-12-13 06:36 | PQF ---
[facility] Pick Up Man Crystal Reports Winform ViewerHarper, FabioFRANCISCO Powers MD [id number] CLINICAL DOCUMENTATION CLARIFICATION FORM: POST DISCHARGE Addendum to original discharge summary date: ___12/12/19 Late entry note date: 12/13/19 DATE: 12/13/2019 ATTN: Francisco Brown Please exercise your independent, professional judgment in responding to the clarification form. Clinical indicators are provided on the bottom of this form for your review Please check appropriate box(s): [ y ] UTI is associated with indwelling suprapubic catheter [ ] UTI is not associated with indwelling suprapubic catheter [ ] Other diagnosis [ ] Unable to determine In addition, please specify: Present on Admission (POA): [ y] Yes [ ] No [ ] Unable to determine CLINICAL INDICATORS - SIGNS / SYMPTOMS / LABS ED final progress diagnosis is acute pyelonephritis. Indwelling suprapubic catheter - ED provider report dated 12/09 Urinary tract infection, presenting with fever of 102.9 - H and P dated 12/09 by Francisco Brown Urinary retention, status post suprapubic catheter placement. Catheter changed out on admission in the ER on 11/08 - H and P dated 12/09 by Francisco Brown RISK FACTORS Urinary retention - Progress note dated 12/11 by Francisco Brown TREATMENT: IV Rocephin from 12/09 to 12/11 - Medications IV Vancomycin from 12/09 to 12/11 - Medications (This form is maintained as a part of the permanent medical record) 2014 [employer]. All Rights Reserved [email or web address]
--- NOTE | 2019-12-13 10:17 | DIS ---
DATE OF ADMISSION: 12/10/2019 DATE OF DISCHARGE: 12/12/2019 Admitted to [facility] acute care on 12/09 and transferred on 12/12/2019. FINAL DIAGNOSES: 1. Staphylococcus bacteremia. a. Initial blood cultures from 12/10/2019 are growing methicillin-susceptible Staphylococcus aureus and the second bottle is growing Staph species. b. Repeat blood cultures drawn on 12/10 are pending. c. Etiology of the Staph bacteremia not known. 2. Urinary tract infection/pyelonephritis. a. Presenting with temperature of 102.9. b. Temperature persisted up to 102.7 as of 12/11. c. Urine culture pending as of 12/11. 3. Nonischemic cardiomyopathy. a. Last echocardiogram June 2019 showed ejection fraction of 35% to 45% with bilateral severe enlargement of the atrium. Heart cath in January 2017 showed no occlusive coronary artery disease. b. Status post automatic implantable cardioverter-defibrillator pacemaker placement. c. No evidence of acute congestive failure as of 12/11. 4. Chronic atrial fibrillation. a. Rate control. b. On Eliquis. 5. Obstructive sleep apnea, for which he is on continuous positive airway pressure when sleeping. 6. Urinary retention. a. Status post suprapubic catheter placement on 11/04/2019. Catheter change out on 12/07/2019. b. Catheter changed out on admission in the emergency room on 12/09. c. Urine clear and light yellow color as of 12/11. 7. 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 8. Low back pain with history of lumbar spondylosis and recent fall. 9. Fall on 12/10/2019 with complaint of left shoulder pain. a. On exam, no evidence of any bruising or point tenderness. b. 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 SUMMARY: The patient is an 84-year-old white male, who has a history of nonischemic cardiomyopathy, chronic atrial fibrillation, and an AICD/pacemaker. He has a suprapubic catheter that was placed on 11/04/2019 for urinary retention and this was changed out on 12/07/2019. The patient lives at home with his , who is his primary caregiver. He is independent of his ADLs and ambulates with the use of a walker. On the day of admission, 12/09, he was getting out of the shower and fell and hit his left shoulder on the sink. He did not lose consciousness, but needed to help getting up. He rested for a while in bed and then just continued to have pain and extreme weakness, prompting his visit to the emergency room. In the emergency room, he was found to have a temperature of 102.9. His chest x-ray showed chronic cardiomegaly and pulmonary vascular congestion. It also showed the severe arthritis of the glenohumeral joint on the left in the AC joint. LS spine series showed spondylosis. X-ray of the left hip showed no fracture. The patient's urine showed 20 to 50 rbc's and wbc's too numerous to count. His white cell count was 8900. The patient was admitted to the hospital with a diagnosis of urinary tract infection and pyelonephritis and a fall with no injuries found. The patient had blood cultures drawn and urine culture obtained in the emergency room, and then was started on IV vancomycin and ceftriaxone. The patient was seen the following morning, and he was able to give me a history of what had occurred and he said he was feeling better, but just sore and a little weaker than usual. Later that afternoon, he had one blood culture came back that was growing Staph. Two repeat blood cultures were drawn and I think this initial positive blood culture may have been contamination. The patient again spiked a temp on the evening of 12/10 up to 102.7. On repeat examination on 12/11, he just complained of not feeling very well and just achy. His lungs remained clear. His initial blood cultures from 12/09 grew methicillin-sensitive Staph aureus and the initial second blood culture now was growing a Staph species yet to be totally identified. The two repeat cultures that were done on 12/10 are pending. Urine culture was still early, no report received on this. His white blood cell count was 8100 with 46% segs and 32% bands, GFR was 48. The patient had evidence of a Staph bacteremia. Etiology from this was not known. He also had initially evidence of urinary tract infection, culture pending. It is felt best that the patient be transferred to a hospital, a higher level care, so that he can have a consultation with Infectious Disease physician and also check with an echocardiogram to ensure that there is no vegetation present. I spoke with the hospitalist at [facility], Dr. Heller, who agreed to accept the patient in transfer. I spoke with the patient. He was willing to be transferred. At the time of his transfer, he was still receiving the IV vancomycin and the IV ceftriaxone. DISPOSITION: Transferred to [facility] for the Staph bacteremia and UTI. At the time of transfer, the patient was receiving the following medication: 1. Acetaminophen 650 mg every 4 hours as needed. 2. Eliquis 5 mg b.i.d. 3. Dulcolax suppository 10 mg daily p.r.n. 4. Carvedilol 6.25 mg twice today. 5. Ceftriaxone 2 g IV daily. 6. Avodart 0.5 mg daily. 7. Famotidine 20 mg b.i.d. 8. Uloric 40 mg at bedtime. 9. Furosemide 40 mg daily. 10. Xalatan 0.005% one drop in the left eye at bedtime. 11. Melatonin 6 mg at bedtime. 12. Mirtazapine 30 mg at bedtime. 13. Multivitamin daily. 14. Zofran ODT 4 mg every 6 hours p.r.n. 15. MiraLAX 17 g, 8 ounces of water daily as needed. 16. Entresto 24 mg/26 mg b.i.d. 17. Spironolactone 12.5 mg daily. 18. Tamsulosin 0.4 mg daily. 19. Vancomycin 1 g daily. DIET: Regular diet. No added salt. CODE STATUS: DNR. Job ID: [id number]
== END 2019-12-12 15:00 | disposition short-term general hospital (02) | DRG 699 ==
LOC: MADERS 14:28 → MADMS 17:34
PROVIDERS: ADMIT Family Medicine; ATTEND Family Medicine
DX: T83.511A Infection and inflammatory reaction due to indwelling urethral catheter, initial encounter (principal); I48.20 Chronic atrial fibrillation, unspecified; I42.8 Other cardiomyopathies; N39.0 Urinary tract infection, site not specified; I10 Essential (primary) hypertension; Z66 Do not resuscitate; G47.33 Obstructive sleep apnea (adult) (pediatric); R53.1 Weakness; M47.816 Spondylosis without myelopathy or radiculopathy, lumbar region; M19.012 Primary osteoarthritis, left shoulder; M25.512 Pain in left shoulder; Y84.6 Urinary catheterization as the cause of abnormal reaction of the patient, or of later complication, without mention of misadventure at the time of the procedure; Z95.810 Presence of automatic (implantable) cardiac defibrillator; Z90.49 Acquired absence of other specified parts of digestive tract; Z90.89 Acquired absence of other organs; Z79.01 Long term (current) use of anticoagulants
CPT/HCPCS: 36415; 71045; 72100; 80048; 80053; 81003; 81015; 83605; 85025; 87040; 87077; 87086; J0696; J3370; J3490; J7050

== ENCOUNTER 2019-12-24 20:05 | Outpatient (CLI) | payer MEDICARE ==
[2019-12-25 08:11] LABS: ALT (SGPT) 21 U/L (8-55); AST (SGOT) 15 U/L (5-34); Albumin 3.4 g/dL (3.4-4.8); Alkaline Phosphatase 86 U/L (40-110); Anion Gap 15 mmol/L (10-20); BUN (Urea Nitrogen) 17 mg/dL (8.4-25.7); Bilirubin, Total 0.5 mg/dL (0.2-1.2); CRP (Inflammatory) 3.06 mg/dL (= or < 0.5); Calc. Creatinine Clearance 0 mL/min (70-130); Calcium 8.5 mg/dL (7.8-10.44); Carbon Dioxide 27 mmol/L (23-31); Chloride 107 mmol/L (98-107); Estimated GFR-MDRD 60; Globulin 3.2 g/dL (2.4-3.5); Glucose 107 mg/dL (83-110); Potassium 3.8 mmol/L (3.5-5.1); Protein, Total 6.6 g/dL (5.8-8.1); Sodium 145 mmol/L (136-145)
[2019-12-25 08:31] LABS: #Basophils 0.1 thou/uL (0.0-0.2); #Eosinphils 0.3 thou/uL (0.0-0.7); #Lymphocytes 1.1 thou/uL (1.20-3.40); #Monocytes 0.6 thou/uL (0.11-0.59); #Neutrophils 5.3 thou/uL (1.40-6.50); %Basophils 1.7 % (0.0-1.0); %Eosinophils 3.6 % (0.0-10.0); %Lymphocytes 15.1 % (21.0-51.0); %Neutrophils 71.6 % (42.0-75.0); Mean Corpuscular HGB CONC 31.2 g/dL (32.0-36.0); Platelet Count 281 thou/uL (130-400); RBC Distribution Width 14.9 % (11.5-14.5); Red Blood Cell (RBC) Count 3.66 mill/uL (4.70-6.10); White Blood Cell (WBC) Count 7.5 thou/uL (4.8-10.8)
== END 2019-12-24 20:06 | disposition home or self-care (01) ==
LOC: MADLAB 20:05
PROVIDERS: ATTEND Family Medicine
DX: B95.62 Methicillin resistant Staphylococcus aureus infection as the cause of diseases classified elsewhere (principal); R78.81 Bacteremia; N13.6 Pyonephrosis
CPT/HCPCS: 80053; 85025; 86140

== ENCOUNTER 2020-01-07 12:30 | Outpatient (CLI) | payer MEDICARE ==
[2020-01-07 13:27] LABS: #Basophils 0.1 thou/uL (0.0-0.2); #Eosinphils 0.4 thou/uL (0.0-0.7); #Lymphocytes 1.1 thou/uL (1.20-3.40); #Monocytes 0.5 thou/uL (0.11-0.59); #Neutrophils 2.9 thou/uL (1.40-6.50); %Basophils 1.8 % (0.0-1.0); %Eosinophils 8.3 % (0.0-10.0); %Monocytes 10.3 % (0.0-10.0); %Neutrophils 57.5 % (42.0-75.0); Hemoglobin 10.7 g/dL (14.0-18.0); Mean Corpuscular HGB CONC 30.6 g/dL (32.0-36.0); Mean Corpuscular Volume 98.2 fL (78.0-98.0); Mean Platelet Volume 8.7 fL (7.4-10.4); Platelet Count 144 thou/uL (130-400); RBC Distribution Width 15.9 % (11.5-14.5); Red Blood Cell (RBC) Count 3.57 mill/uL (4.70-6.10)
[2020-01-07 13:42] LABS: ALT (SGPT) 9 U/L (8-55); AST (SGOT) 13 U/L (5-34); Albumin 3.4 g/dL (3.4-4.8); Alkaline Phosphatase 90 U/L (40-110); Anion Gap 17 mmol/L (10-20); BUN (Urea Nitrogen) 14 mg/dL (8.4-25.7); Bilirubin, Total 0.4 mg/dL (0.2-1.2); CRP (Inflammatory) 1.06 mg/dL (= or < 0.5); Calc. Creatinine Clearance 0 mL/min (70-130); Calcium 8.3 mg/dL (7.8-10.44); Carbon Dioxide 20 mmol/L (23-31); Chloride 108 mmol/L (98-107); Estimated GFR-MDRD 56; Globulin 3.1 g/dL (2.4-3.5); Glucose 125 mg/dL (83-110); Potassium 3.9 mmol/L (3.5-5.1); Protein, Total 6.5 g/dL (5.8-8.1); Sodium 141 mmol/L (136-145)
== END 2020-01-07 12:31 | disposition home or self-care (01) ==
LOC: MADLAB 12:30
PROVIDERS: ATTEND Family Medicine
DX: S72.034D Nondisplaced midcervical fracture of right femur, subsequent encounter for closed fracture with routine healing (principal)
CPT/HCPCS: 80053; 85025; 86140

== ENCOUNTER 2020-02-22 18:05 | Emergency (ER) | payer MEDICARE ==
--- NOTE | 2020-02-22 19:30 | CT ---
CT OF THE THORAX WITHOUT IV CONTRAST INDICATION: 84-year-old male with history of chest pain after fall COMPARISON: CT of the abdomen and pelvis without contrast dated December 13, 2019 FINDINGS: LUNGS: There is an enlarging pleural-based rounded soft tissue nodule seen on image 52 of series 3 me asuring 3.2 x 2.4 cm. There is subpleural opacity involving the posterior left lower lobe that is improved from the prior exam. There is stable chronic mild interstitial fibrosis. There prior radiode nsities within the dependent portions of both lower lobe suspicious for aspirated barium that appears similar to the prior exam. Pleural spaces: There are small bilateral pleural effusions, right greater than left. Lymph nodes: No pathologically enlarged lymph nodes. Heart and great vessels: There is moderate cardiomegaly. There is a multi lead pacemaker overlying th e left chest wall. There are coronary artery and thoracic aortic calcifications. Upper abdomen: Cholecystectomy. Calcification of the right adrenal gland is stable. There are calcifi ed granuloma within the spleen. Osseous structures: There is an acute, mildly comminuted right posterior lateral eighth rib fracture. There is a minimally displaced right posterior lateral 11th rib fracture. There is a minimally displaced left posterior lateral ninth rib fracture. There is a chronic ununited left posterior later al 10th rib fracture. There is a healing left posterolateral seventh rib fracture. There is multilevel spondylosis of the thoracic spine. IMPRESSION: 1. Acute right posterior lateral eighth rib, right 11th rib and left ninth rib fractures. 2. Enlarging pleural-based rounded soft tissue pulmonary nodule in the posterior lateral right lower lobe, adjacent to a small right pleural effusion. Findings may reflect an enlarging region of rounded atelectasis; however, an enlarging pulmonary malignancy is not excluded. Would recommend cons ideration for PET/CT for additional evaluation. There is improved aeration of the left lower lobe, adjacent to a chronic left pleural effusion. 3. Persistent cardiomegaly. 4. Radiodensities within the dependent portions of both lower lobe suspicious for prior aspirated bar ium
[2020-02-22] MEDS ORDERED: HYDROcodone/Acetaminophen 5/325 mg Tablet ONE (20:12)
[2020-02-22 20:42] LABS: #Basophils 0.1 thou/uL (0.0-0.2); #Eosinphils 0.6 thou/uL (0.0-0.7); #Lymphocytes 1.1 thou/uL (1.20-3.40); #Monocytes 0.8 thou/uL (0.11-0.59); #Neutrophils 7.5 thou/uL (1.40-6.50); %Basophils 1.1 % (0.0-1.0); %Eosinophils 6.2 % (0.0-10.0); %Lymphocytes 10.6 % (21.0-51.0); %Monocytes 7.4 % (0.0-10.0); %Neutrophils 74.7 % (42.0-75.0); Hemoglobin 11.4 g/dL (14.0-18.0); Mean Corpuscular HGB CONC 31.2 g/dL (32.0-36.0); Mean Corpuscular Hemoglobin 30.5 pg (27.0-31.0); Mean Corpuscular Volume 97.8 fL (78.0-98.0); Mean Platelet Volume 6.3 fL (7.4-10.4); Platelet Count 207 thou/uL (130-400); RBC Distribution Width 14.6 % (11.5-14.5); Red Blood Cell (RBC) Count 3.72 mill/uL (4.70-6.10)
[2020-02-22 20:45] LABS: INR-International Normal Ratio 1.3
[2020-02-22 20:54] LABS: ALT (SGPT) 10 U/L (8-55); AST (SGOT) 13 U/L (5-34); Albumin 3.8 g/dL (3.4-4.8); Alkaline Phosphatase 69 U/L (40-110); Anion Gap 16 mmol/L (10-20); BUN (Urea Nitrogen) 23 mg/dL (8.4-25.7); Bilirubin, Total 0.7 mg/dL (0.2-1.2); Calc. Creatinine Clearance 0 mL/min (70-130); Calcium 8.8 mg/dL (7.8-10.44); Carbon Dioxide 21 mmol/L (23-31); Chloride 106 mmol/L (98-107); Estimated GFR-MDRD 48; Globulin 3.6 g/dL (2.4-3.5); Glucose 123 mg/dL (83-110); Potassium 3.8 mmol/L (3.5-5.1); Protein, Total 7.4 g/dL (5.8-8.1); Sodium 139 mmol/L (136-145)
== END 2020-02-22 21:08 | disposition home or self-care (01) ==
LOC: MADERS 18:05
DX: S22.41XA Multiple fractures of ribs, right side, initial encounter for closed fracture (principal); S22.32XA Fracture of one rib, left side, initial encounter for closed fracture; F41.9 Anxiety disorder, unspecified; E78.00 Pure hypercholesterolemia, unspecified; I11.0 Hypertensive heart disease with heart failure; I50.9 Heart failure, unspecified; I48.91 Unspecified atrial fibrillation; Z79.891 Long term (current) use of opiate analgesic; Z87.891 Personal history of nicotine dependence; Z79.899 Other long term (current) drug therapy; W23.0XXA Caught, crushed, jammed, or pinched between moving objects, initial encounter
CPT/HCPCS: 36415; 71250; 80053; 85025; 85610

== ENCOUNTER 2020-02-26 19:47 | Emergency (ER) | payer MEDICARE ==
[2020-02-26] MEDS ORDERED: Morphine 4 MG/ML VIAL ONE (20:29)
[2020-02-26] MEDS ORDERED: Ondansetron PF 4 MG/2 ML Vial ONE (20:29)
[2020-02-26 20:34] LABS: #Basophils 0.1 thou/uL (0.0-0.2); #Eosinphils 0.4 thou/uL (0.0-0.7); #Lymphocytes 1.6 thou/uL (1.20-3.40); #Monocytes 0.8 thou/uL (0.11-0.59); #Neutrophils 5.1 thou/uL (1.40-6.50); %Eosinophils 5.1 % (0.0-10.0); %Lymphocytes 19.5 % (21.0-51.0); %Monocytes 10.1 % (0.0-10.0); %Neutrophils 64.4 % (42.0-75.0); Hemoglobin 11.2 g/dL (14.0-18.0); Mean Corpuscular Volume 96.7 fL (78.0-98.0); Mean Platelet Volume 6.3 fL (7.4-10.4); Platelet Count 228 thou/uL (130-400); RBC Distribution Width 14.5 % (11.5-14.5); Red Blood Cell (RBC) Count 3.74 mill/uL (4.70-6.10)
--- NOTE | 2020-02-26 20:49 | CT ---
CT CHEST WITHOUT CONTRAST: 02/26/20 COMPARISON: 02/22/20 HISTORY: Chest pain, rib fractures. TECHNIQUE: Axial CT imaging at 5 mm intervals through the chest without contrast. Coronal and sagittal reformatt ed imaging obtained. FINDINGS: There is a multilead transvenous pacing device inserted via a left sided approach. Limited assessment of the upper abdomen demonstrates atherosclerotic calcification of the abdominal aorta and its branches. Evaluation of the imaged viscera, bowel, vascular structures, and for lymphad enopathy is limited secondary to the lack of contrast media. The imaged colon demonstrates diffuse di verticulosis. There is a small right pleural effusion and a trace left pleural effusion which appears similar when compared to the prior study. The heart appears enlarged. Increased linear interstitial density is again noted with an upper lobe predominance. There is bronch ial thickening with nonspecific reticular opacity and ground glass opacity within the inferior vaccinator ior aspect of the left lower lobe, stable. There is an ill-defined nodular density within the lingula on axial image 44 measuring approximately 7-8 mm, as seen on the 02/22/20 exam. Within the inferior aspect of the right lower lobe laterally, there is a mass measuring 2.6 cm in AP dimension, not significantly changed when compared to the 02/22/20 exam. There is a subacute fracture involving the medial aspect of the left 9th rib with callus formation. T here is also a posterior left 9th rib fracture. There is a subacute lateral posterior left 7th rib fr acture as well. There is multilevel degenerative change within the thoracic spine with disc space narrowing, degenera tive end plate change and anterior osteophyte formation. There is a posterolateral right 6th rib fracture, 8th rib fracture, and 11th rib fracture as well. There is mildly enlarged AP window lymph node measuring 1.1 cm on image 22. Prominent 1.6 cm lymph no de in the right paratracheal region on image 24 and there is probable subcarinal adenopathy measuring 2.3 cm on image 33. Chest lymphadenopathy will also be better assessed on follow-up PET scan. IMPRESSION: 1. Stable bilateral rib fractures. 2. No pneumothorax. 3. Stable right pleural effusion. 4. Pulmonary mass within the right lower lobe. This may be on the basis of malignancy and thus, PET scan advised for further assessment, as recommended on the 02/22/20 exam. There has been no signifi cant interval change when compared to the prior study. There is questionable adenopathy within the ch est as detailed above, not optimally assessed without contrast media. Code T
[2020-02-26 20:52] LABS: Anion Gap 17 mmol/L (10-20); BUN (Urea Nitrogen) 26 mg/dL (8.4-25.7); Calc. Creatinine Clearance 0 mL/min (70-130); Calcium 8.8 mg/dL (7.8-10.44); Carbon Dioxide 23 mmol/L (23-31); Chloride 104 mmol/L (98-107); Estimated GFR-MDRD 44; Glucose 128 mg/dL (83-110); Potassium 4.8 mmol/L (3.5-5.1); Sodium 139 mmol/L (136-145)
== END 2020-02-26 22:25 | disposition home or self-care (01) ==
LOC: MADERS 19:47
DX: S22.41XA Multiple fractures of ribs, right side, initial encounter for closed fracture (principal); I11.0 Hypertensive heart disease with heart failure; I50.9 Heart failure, unspecified; I48.91 Unspecified atrial fibrillation; E78.00 Pure hypercholesterolemia, unspecified; F41.9 Anxiety disorder, unspecified; Z87.891 Personal history of nicotine dependence; Z79.01 Long term (current) use of anticoagulants; Z79.899 Other long term (current) drug therapy; W19.XXXA Unspecified fall, initial encounter
CPT/HCPCS: 71250; 80048; 85025; 96374; 96375; J2270; J2405

== ENCOUNTER 2020-06-21 10:57 | Outpatient (CLI) | payer MEDICARE ==
[2020-06-21 11:15] LABS: #Basophils 0.2 thou/uL (0.0-0.2); #Eosinphils 0.3 thou/uL (0.0-0.7); #Monocytes 0.8 thou/uL (0.11-0.59); #Neutrophils 4.7 thou/uL (1.40-6.50); %Basophils 2.2 % (0.0-1.0); %Eosinophils 4.6 % (0.0-10.0); %Monocytes 11.7 % (0.0-10.0); %Neutrophils 67.5 % (42.0-75.0); Hemoglobin 10.7 g/dL (14.0-18.0); Mean Corpuscular HGB CONC 32.4 g/dL (32.0-36.0); Mean Corpuscular Hemoglobin 32.5 pg (27.0-31.0); Mean Corpuscular Volume 100.4 fL (78.0-98.0); Mean Platelet Volume 5.6 fL (7.4-10.4); Platelet Count 228 thou/uL (130-400); RBC Distribution Width 14.2 % (11.5-14.5); Red Blood Cell (RBC) Count 3.28 mill/uL (4.70-6.10); White Blood Cell (WBC) Count 6.9 thou/uL (4.8-10.8)
[2020-06-21 11:28] LABS: Albumin 3.4 g/dL (3.4-4.8); Anion Gap 12 mmol/L (10-20); BUN (Urea Nitrogen) 31 mg/dL (8.4-25.7); Calc. Creatinine Clearance 0 mL/min (70-130); Carbon Dioxide 25 mmol/L (23-31); Chloride 105 mmol/L (98-107); Estimated GFR-MDRD 42; Glucose 112 mg/dL (83-110); Magnesium 2.2 mg/dL (1.6-2.6); Potassium 4.4 mmol/L (3.5-5.1); Sodium 138 mmol/L (136-145)
== END 2020-06-21 10:58 | disposition home or self-care (01) ==
LOC: MADLAB 10:57
PROVIDERS: ATTEND Urology
DX: I13.10 Hypertensive heart and chronic kidney disease without heart failure, with stage 1 through stage 4 chronic kidney disease, or unspecified chronic kidney disease (principal); N18.30 Chronic kidney disease, stage 3 unspecified; R60.0 Localized edema; R60.9 Edema, unspecified
CPT/HCPCS: 36415; 80048; 82040; 83735; 85025

== ENCOUNTER 2020-08-09 16:12 | Emergency (ER) | payer MEDICARE ==
[2020-08-09] MEDS ORDERED: Loperamide HCl 2 MG CAP ONE (16:50)
[2020-08-09] MEDS ORDERED: Sodium Chloride 0.9% 1,000 ML ONE (16:50)
[2020-08-09 17:11] LABS: #Lymphocytes 0.9 thou/uL (1.20-3.40); #Monocytes 0.5 thou/uL (0.11-0.59); #Neutrophils 3.7 thou/uL (1.40-6.50); %Basophils 0.9 % (0.0-1.0); %Eosinophils 0.4 % (0.0-10.0); %Lymphocytes 17.8 % (21.0-51.0); %Monocytes 9.6 % (0.0-10.0); %Neutrophils 71.4 % (42.0-75.0); Hemoglobin 11.7 g/dL (14.0-18.0); Mean Corpuscular HGB CONC 32.7 g/dL (32.0-36.0); Mean Corpuscular Hemoglobin 31.9 pg (27.0-31.0); Mean Corpuscular Volume 97.5 fL (78.0-98.0); Mean Platelet Volume 7.6 fL (7.4-10.4); Platelet Count 151 thou/uL (130-400); RBC Distribution Width 12.9 % (11.5-14.5); Red Blood Cell (RBC) Count 3.67 mill/uL (4.70-6.10); White Blood Cell (WBC) Count 5.2 thou/uL (4.8-10.8)
[2020-08-09 17:24] LABS: Bilirubin Small (Negative); Blood, Urine Moderate (Negative); Clarity Cloudy (Clear); Glucose, Urine (Dipstick) Negative (Negative); Ketone, Urine Trace mg/dL (Negative); Leukocyte Large (Negative); Nitrite Negative (Negative); Protein, Urine (Dipstick) 100 mg/dL (Neg-Trace); Urobilinogen 0.2 mg/dL (Less than 2)
[2020-08-09 17:25] LABS: Bacteria/HPF 2+ HPF (None Seen); Squamous Epithelial 0-3 HPF (0-3); WBC/HPF Greater Than 50 HPF (0-3)
[2020-08-09 17:27] LABS: ALT (SGPT) 17 U/L (8-55); AST (SGOT) 34 U/L (5-34); Albumin 3.5 g/dL (3.4-4.8); Alkaline Phosphatase 65 U/L (40-110); Anion Gap 19 mmol/L (10-20); BUN (Urea Nitrogen) 39 mg/dL (8.4-25.7); Bilirubin, Total 0.7 mg/dL (0.2-1.2); CK (CPK) 30 U/L (30-200); Calc. Creatinine Clearance 0 mL/min (70-130); Calcium 8.5 mg/dL (7.8-10.44); Carbon Dioxide 19 mmol/L (23-31); Chloride 101 mmol/L (98-107); Globulin 3.6 g/dL (2.4-3.5); Glucose 100 mg/dL (83-110); Potassium 4.5 mmol/L (3.5-5.1); Protein, Total 7.1 g/dL (5.8-8.1); Sodium 134 mmol/L (136-145)
[2020-08-09] MEDS ORDERED: Levofloxacin 500 mg/D5W 100 ml Premix Bag ONE (17:31)
== END 2020-08-09 18:48 | disposition home or self-care (01) ==
LOC: MADERS 16:12
DX: K52.9 Noninfective gastroenteritis and colitis, unspecified (principal); N39.0 Urinary tract infection, site not specified; I48.91 Unspecified atrial fibrillation; E78.00 Pure hypercholesterolemia, unspecified; I11.0 Hypertensive heart disease with heart failure; I50.9 Heart failure, unspecified; Z87.891 Personal history of nicotine dependence; Z79.01 Long term (current) use of anticoagulants; Z79.899 Other long term (current) drug therapy
CPT/HCPCS: 80053; 81003; 81015; 82550; 85025; 86140; 96365; J1956; J7050

== ENCOUNTER 2020-08-10 11:44 | Emergency (ER) | payer MEDICARE ==
[2020-08-10 12:29] LABS: #Lymphocytes 0.7 thou/uL (1.20-3.40); #Monocytes 0.4 thou/uL (0.11-0.59); #Neutrophils 3.7 thou/uL (1.40-6.50); %Basophils 0.5 % (0.0-1.0); %Eosinophils 0.4 % (0.0-10.0); %Lymphocytes 13.6 % (21.0-51.0); %Neutrophils 76.5 % (42.0-75.0); Hemoglobin 11.7 g/dL (14.0-18.0); Mean Corpuscular HGB CONC 32.4 g/dL (32.0-36.0); Mean Corpuscular Volume 98.7 fL (78.0-98.0); Mean Platelet Volume 8.7 fL (7.4-10.4); Platelet Count 156 thou/uL (130-400); RBC Distribution Width 13.2 % (11.5-14.5); Red Blood Cell (RBC) Count 3.66 mill/uL (4.70-6.10); White Blood Cell (WBC) Count 4.8 thou/uL (4.8-10.8)
--- NOTE | 2020-08-10 12:35 | RAD ---
CHEST 1 VIEW: Date: 08/10/2020 HISTORY: Cough. COMPARISON: 12/10/2019. FINDINGS: Cardiomegaly. Left ICD. Bilateral vascular congestion with small pleural effusions and increased line ar and interstitial markings bilaterally. Overall appearance is little changed from prior exam. No si gnificant new confluent lobar pneumonia. IMPRESSION: 1. Overall stable appearing cardiomegaly, vascular congestion, increased markings bilaterally, and p robable small right pleural effusion. Continue short-term follow-up. 2. Coexistent minimal COVID pneumonia would be certainly difficult to exclude in light of these othe r findings. POS: AH
[2020-08-10 12:47] LABS: ALT (SGPT) 15 U/L (8-55); AST (SGOT) 27 U/L (5-34); Albumin 3.3 g/dL (3.4-4.8); Alkaline Phosphatase 59 U/L (40-110); Anion Gap 16 mmol/L (10-20); BUN (Urea Nitrogen) 34 mg/dL (8.4-25.7); Bilirubin, Total 0.7 mg/dL (0.2-1.2); Calc. Creatinine Clearance 0 mL/min (70-130); Calcium 8.3 mg/dL (7.8-10.44); Carbon Dioxide 21 mmol/L (23-31); Chloride 104 mmol/L (98-107); Globulin 3.5 g/dL (2.4-3.5); Glucose 86 mg/dL (83-110); Potassium 4.4 mmol/L (3.5-5.1); Protein, Total 6.8 g/dL (5.8-8.1); Sodium 137 mmol/L (136-145)
[2020-08-10 13:06] LABS: CKMB 1.4 ng/mL (0-6.6)
[2020-08-10] MEDS ORDERED: Aspirin Chewable 81 MG TAB ONE ×2 (14:53→15:04)
[2020-08-10] MEDS ORDERED: Furosemide 40 MG/4 ML VIAL ONE (14:53)
[2020-08-10 15:26] LABS: Lactic Acid 1.8 mmol/L (0.5-2.2)
[2020-08-10 17:16] LABS: SARS-CoV-2 NAA Rapid Test DETECTED (NotDetected)
== END 2020-08-10 16:51 | disposition short-term general hospital (02) ==
LOC: MADERS 11:44
DX: U07.1 COVID-19 (principal); I11.0 Hypertensive heart disease with heart failure; I50.9 Heart failure, unspecified; I48.91 Unspecified atrial fibrillation; E78.00 Pure hypercholesterolemia, unspecified; Z87.891 Personal history of nicotine dependence; Z79.01 Long term (current) use of anticoagulants; Z79.899 Other long term (current) drug therapy
CPT/HCPCS: 0240U; 71045; 80053; 82553; 83605; 83880; 84484; 85025; 93005; 36415; 96374; J1940

== ENCOUNTER 2020-08-25 16:24 | Inpatient (IN) | payer MEDICARE ==
[2020-08-25] MEDS ORDERED: Fluticasone Propionate Nasal Spray 16 gm Bottle NASAL PRN (20:52)
[2020-08-25] MEDS ORDERED: Melatonin 3 MG TAB PO SCH (21:00)
[2020-08-25] MEDS ORDERED: Mirtazapine 15 MG TAB PO SCH (21:00)
[2020-08-25] MEDS: Montelukast Sodium 10 mg Tablet PO SCH (21:28)
[2020-08-25] MEDS: Cholecalciferol 1,000 UNITS (25 MCG) TAB PO SCH (21:28)
[2020-08-25] MEDS: Apixaban 5 MG TAB PO SCH (21:28)
[2020-08-25] MEDS: Allopurinol 100 MG TAB PO SCH (21:28)
[2020-08-25] MEDS: Carvedilol 6.25 MG TAB PO SCH ×2 (21:29→22:12)
[2020-08-25] MEDS: Latanoprost 0.005% Ophth Soln 2.5 ml Bottle L EYE SCH (21:29)
[2020-08-25] MEDS: Zinc Gluconate 50 MG TAB PO SCH (21:30)
[2020-08-26] MEDS: Spironolactone 25 MG TAB PO SCH (09:17)
[2020-08-26] MEDS: Trospium 20 MG TAB PO SCH (09:17)
[2020-08-26] MEDS: Furosemide 40 MG TAB PO SCH (09:18)
[2020-08-26] MEDS: Allopurinol 100 MG TAB PO SCH ×2 (09:18→20:14)
[2020-08-26] MEDS: Multivit, Therapeutic 1 TAB PO SCH (09:18)
[2020-08-26] MEDS: Ascorbic Acid 500 mg Chewable Tablet PO SCH (09:18)
[2020-08-26] MEDS: methylPREDNISolone 4 mg Tablet PO SCH (09:18)
[2020-08-26] MEDS: Apixaban 5 MG TAB PO SCH ×2 (09:18→20:14)
[2020-08-26] MEDS: Carvedilol 6.25 MG TAB PO SCH ×2 (09:19→20:14)
--- NOTE | 2020-08-26 11:41 | RAD ---
CHEST 1 VIEW: Date: 08/26/2020 COMPARISON: 08/10/2020. 08/18/2020. HISTORY: Low O2 saturation. FINDINGS: Stable left-sided transvenous defibrillator. There is cardiomegaly and atherosclerosis of aorta. Ther e are bilateral pleural effusions. There are scattered interstitial and alveolar opacities. No pneumo thorax. IMPRESSION: 1. Congestive heart failure. 2. Superimposed pneumonia cannot be excluded. Continued surveillance is recommended. POS: OFF
[2020-08-26] MEDS: Melatonin 3 MG TAB PO SCH (20:13)
[2020-08-26] MEDS: Cholecalciferol 1,000 UNITS (25 MCG) TAB PO SCH (20:14)
[2020-08-26] MEDS: Montelukast Sodium 10 mg Tablet PO SCH (20:14)
[2020-08-26] MEDS: Mirtazapine 15 MG TAB PO SCH (20:15)
[2020-08-26] MEDS: Latanoprost 0.005% Ophth Soln 2.5 ml Bottle L EYE SCH (20:16)
[2020-08-26] MEDS: Zinc Gluconate 50 MG TAB PO SCH (20:16)
[2020-08-27 05:35] LABS: #Basophils 0.3 thou/uL (0.0-0.2); #Eosinphils 0.5 thou/uL (0.0-0.7); #Monocytes 0.8 thou/uL (0.11-0.59); #Neutrophils 7.7 thou/uL (1.40-6.50); %Basophils 2.8 % (0.0-1.0); %Eosinophils 4.8 % (0.0-10.0); %Lymphocytes 9.2 % (21.0-51.0); %Monocytes 8.1 % (0.0-10.0); Hemoglobin 10.7 g/dL (14.0-18.0); Mean Corpuscular HGB CONC 32.6 g/dL (32.0-36.0); Mean Corpuscular Hemoglobin 31.6 pg (27.0-31.0); Mean Corpuscular Volume 96.9 fL (78.0-98.0); Mean Platelet Volume 5.8 fL (7.4-10.4); Platelet Count 224 thou/uL (130-400); RBC Distribution Width 13.7 % (11.5-14.5); White Blood Cell (WBC) Count 10.3 thou/uL (4.8-10.8)
[2020-08-27 05:50] LABS: ALT (SGPT) 22 U/L (8-55); AST (SGOT) 13 U/L (5-34); Albumin 2.6 g/dL (3.4-4.8); Alkaline Phosphatase 65 U/L (40-110); Anion Gap 14 mmol/L (10-20); BUN (Urea Nitrogen) 32 mg/dL (8.4-25.7); Bilirubin, Total 1.6 mg/dL (0.2-1.2); CRP (Inflammatory) 1.52 mg/dL (= or < 0.5); Calc. Creatinine Clearance 62 mL/min (70-130); Calcium 7.8 mg/dL (7.8-10.44); Carbon Dioxide 26 mmol/L (23-31); Chloride 100 mmol/L (98-107); Globulin 2.6 g/dL (2.4-3.5); Glucose 79 mg/dL (83-110); Protein, Total 5.2 g/dL (5.8-8.1); Sodium 136 mmol/L (136-145); Uric Acid 6.1 mg/dL (3.5-7.2)
[2020-08-27] MEDS: Trospium 20 MG TAB PO SCH (08:45)
[2020-08-27] MEDS: Carvedilol 6.25 MG TAB PO SCH ×2 (08:45→20:21)
[2020-08-27] MEDS: Allopurinol 100 MG TAB PO SCH ×2 (08:46→20:22)
[2020-08-27] MEDS: Furosemide 40 MG TAB PO SCH (08:46)
[2020-08-27] MEDS: Spironolactone 25 MG TAB PO SCH (08:46)
[2020-08-27] MEDS: Multivit, Therapeutic 1 TAB PO SCH (08:46)
[2020-08-27] MEDS: methylPREDNISolone 4 mg Tablet PO SCH (08:46)
[2020-08-27] MEDS: Apixaban 5 MG TAB PO SCH ×2 (08:46→20:22)
[2020-08-27] MEDS: Ascorbic Acid 500 mg Chewable Tablet PO SCH (08:47)
[2020-08-27] MEDS: Lorazepam 0.5 MG TAB PO PRN ×2 (11:11→20:20)
--- NOTE | 2020-08-27 12:49 | HP ---
CHIEF COMPLAINT: Weak following hospitalization with COVID pneumonia. HISTORY OF PRESENT ILLNESS: The patient is an 85-year-old white male, who has a history of a nonischemic cardiomyopathy, atrial fibrillation, pacemaker defibrillator, hypertension, gout, sleep apnea and generalized weakness. He resides at home where his assists him. His activity levels are limited and he requires assistance with his ADLs. He uses a CPAP at night. The patient had developed a viral illness and was initially seen on 08/07/20 by telemedicine and his rapid test at that time was negative. His condition deteriorated, prompting him to go to the emergency room with increasing shortness of breath and fever. His [id number] rapid RNA test on 08/10/20 was positive. The patient was found to have COVID pneumonia on chest x-ray. He was admitted at [facility] from 08/11 through 08/25/20 with COVID pneumonia and acute respiratory failure. He was treated with IV Decadron, remdesivir, and also with vitamin C, vitamin D, and zinc. He has a suprapubic catheter secondary to urinary retention and had a urinary tract infection with Streptococcus, treated with Levaquin. His hypoxic respiratory failure required supplemental O2 for extended period using 12 L of high-flow nasal cannula. On his last day of hospitalization, this had been reduced from 6 to 3 L and he was able to maintain an O2. He was very, very weak and was made primarily bed rest, occasionally could sit up on the side of the bed. He was moved to [facility] facility at [place] on the evening of 08/25/20 for purpose of physical therapy and occupational therapy due to his severe weakness and deconditioning. The patient had an uneventful night. His has been staying with him. She has tested positive for the COVID and he had become very distraught, being from family and spouse. This has helped immensely. On the morning of 08/26/2020, patient said he was feeling very good, better than he has in a long time. He was on the O2 at 4 L with an O2 saturation of 95%, respirations of 18, blood pressure 102/56. Physical therapist came in to work with him and she sat him up on the side of the bed. The patient said that he was up longer than he had been and that is more that he had throughout his hospital stay. He became acutely short of breath with a respiratory rate up in the 40s and O2 saturation had dropped to 78% on the 4 L. He was laid back in bed with the head elevated. He was placed on a 50% Venturi mask and O2 saturation came up to 92% to 93%. I examined him at this point and he was sitting upright in bed. He looked very comfortable and said he was feeling just fine. He was maintaining his O2 saturation in the 90% to 93% on the 50%. A chest x-ray was done and was reviewed by myself and showed stable cardiomegaly and showed diffuse interstitial infiltrates, particularly on the right side. I do not think this is much different from the comparison x-rays. I stayed with patient a while and his and he seemed to be very comfortable and did not complain of any shortness breath and his respiratory rate dropped down to around 20. PAST HISTORY: The patient was hospitalized at [facility] from 08/11/20 until 08/25/20 with COVID pneumonia with hypoxic respiratory failure requiring supplemental high-flow nasal cannula O2. He was treated with IV Decadron, remdesivir and vitamins. While there, he was treated for UTI with Levaquin. The patient has a nonischemic cardiomyopathy with an ejection fraction of 30% to 35%. He has had a pacemaker AICD placed in November of 2018. On 07/17/20, he had AV nikko ablation by alligator trapper, Dr. Choi for suboptimal biventricular pacing due to overriding atrial fibrillation and PVCs. He had a heart catheterization on 01/31/2017 that showed ejection fraction of 35% with no occlusive coronary artery disease. The patient has history of atrial fibrillation, hypertension, gout, had polio at the age of 8 requiring 6 weeks hospitalization leaving him with some atrophy of leg and foot. He has sleep apnea for which he uses CPAP. He has urinary retention that is managed with a suprapubic catheter. He has had a tonsillectomy, cholecystectomy, bladder surgery, bilateral endoscopic sinus surgery, ORIF of right femoral hip fracture. PRESENT MEDICINES: 1. Acetaminophen 650 mg every 6 hours as needed. 2. Allopurinol 100 mg b.i.d. 3. Eliquis 5 mg b.i.d. 4. Ascorbic acid 1000 mg daily. 5. Carvedilol 6.25 mg b.i.d. 6. Cholecalciferol, vitamin D3, 1000 units daily. 7. Flonase nasal spray 2 sprays in each nostril daily. 8. Furosemide 40 mg daily. 9. Latanoprost 0.005% one drop in the left eye daily. 10. Melatonin 6 mg at bedtime. 11. Medrol 4 mg daily. 12. Mirtazapine 15 mg at bedtime. 13. Singulair 10 mg at bedtime. 14. Multivitamin daily. 15. Entresto 24 mg/26 mg b.i.d. 16. Spironolactone 12.5 mg daily. 17. Trospium 20 mg daily. 18. Zinc gluconate 50 mg daily. ALLERGIES: NO KNOWN ALLERGIES. REVIEW OF SYSTEMS: GENERAL: The patient said he is feeling better than he has in a while. He has not had any fever. His weight, he is not sure if there has been a change. EYE, EAR, NOSE, AND THROAT: He has chronic nasal congestion and allergy that he controls with the Singulair and the Flonase. PULMONARY: Patient's previous shortness of breath has settled down. He says he is breathing fine now. CARDIOVASCULAR: No chest pain. GI: No complaints. : Patient has a suprapubic catheter. DERMATOLOGIC: No rash. NEUROLOGIC: The patient is extremely weak, essentially been at bedrest since his illness for which he was hospitalized on 08/11. All he has done is occasionally sit up on the side of the bed for only short periods. This morning's effort created marked shortness of breath and drop in his O2 saturation. The patient complains of generalized weakness. His said that he is having a lot of trouble sleeping and he seems to get a little confused late in the day which she terms . HABITS: Alcohol, none. Tobacco, none. SOCIAL HISTORY: The patient is , lives with his who assists him with his ADLs and all his instrumental ADLs. CODE STATUS: DNR. PHYSICAL EXAMINATION: GENERAL: Shows an 85-year-old white male, who is sitting upright in bed. He has a mask on at 50% and he looks very comfortable and in no distress. VITAL SIGNS: This morning had shown temp at 97.5, pulse 65, respirations 18, O2 saturation 95% on 4 L, blood pressure 102/56. These had markedly declined with a drop in the O2 saturation down to 78% on 4 L, respirations 14 after the little exertion, sitting on the side of the bed. After he laid back and was placed on the 50% Venturi mask, his oxygen saturation has maintained 92% to 93% and his respirations dropped to 20. HEENT: Eyes, pupils are equal, round, reactive. Nose, normal. Mouth and throat normal. NECK: Carotids are equal and strong. LUNGS: There are some rales at the bases. Otherwise, patient's lungs were clear with good breath sounds. HEART: Regular rate. ABDOMEN: Soft. No organomegaly. No areas of tenderness. EXTREMITIES: No edema. NEUROLOGIC: The patient is alert, knows he is at [facility], recognized me and correctly calls me by name and answers questions appropriately. He has generalized weakness. He was intolerant of any exertion, manifested with a marked drop in his O2 saturation. IMPRESSION: 1. Severe generalized weakness and deconditioning. a. Secondary to COVID pneumonia with hypoxic respiratory failure. b. Has left the patient essentially bed confined and required assistance with all his ADLs as of 08/26/20. 2. COVID pneumonia with hypoxic respiratory failure. a. Hospitalized at [facility] from 08/11 until 08/25/20, treated with IV Decadron and remdesivir. Required high-flow O2 by nasal cannula initially at 12 L and gradually reduced to 3 L. b. Complicated by tachypnea and drop in O2 saturation with any exertion, manifest on the morning of 08/26/20 and required supplemental O2 to be increased to 50% Venturi mask with O2 saturation 92% to 93%. c. Initial testing with [id number] rapid RNA positive on 08/10/20. 3. Nonischemic cardiomyopathy. a. Complicated by chronic congestive heart failure. b. No evidence of acute CHF as of 08/26/20. c. Ejection fraction of 30% to 35%. 4. Chronic atrial fibrillation. a. Status post AV nikko ablation on 07/17/[address] Choi, alligator trapper, for suboptimal biventricular pacing due to overriding AF and PVCs. 5. Status post AICD pacemaker. 6. Obstructive sleep apnea. a. Managed with CPAP. 7. Hypertension. 8. Hyperlipidemia. 9. Urinary retention. a. Required placement of suprapubic catheter. 10. Gout. Presently asymptomatic. 11. Allergic rhinitis. 12. Chronic kidney disease. 13. Code status, DNR. PLAN: The patient presently seems to be resting very quietly and comfortable and says he feels good and not having any shortness of breath. His O2 saturation is now maintaining at 92% to 93% on the 50% Venturi mask. I visited with the patient's about his need for the added oxygen and felt like the source of this drop in O2 saturation was his exertion. If his condition declines with further drop in O2 saturation, he will probably need to be transferred back to [facility] so that high-flow O2 can be re-offered to patient again, this is not available here. She is comfortable watching him here since he looks comfortable and seems to be doing well on the 50%. We will try, as he does well, to gradually taper this. For now, we will hold any physical therapy since this seem to be the trigger to the decline this morning in the O2 saturation. We will continue his present medications. Code status, DNR. Job ID: [id number]
--- NOTE | 2020-08-27 13:17 | PRG ---
DATE OF SERVICE: 08/27/2020 SUBJECTIVE: The patient had a good day yesterday after the patient manager event where his O2 saturation has dropped with exertion but recovered with a higher flow of O2. Throughout the day, they were able to cut his O2 back to 5 L by nasal cannula instead of the Venturi mask at 50%. He tolerated this well and his , Bernadette, said that he had a good day and they had good conversations. Last night, he did not sleep very well. He cannot use the CPAP with the oxygen effectively. This morning, he said he is just tired. His breathing is okay. His O2 saturation has been 93% on 6 L by nasal cannula. OBJECTIVE: GENERAL: This morning, the patient looks sleepy but he does not appear in any respiratory distress. He is not dyspneic. VITAL SIGNS: His vital signs shows a temperature 97.9, pulse 69, respirations 20, O2 saturation 96% on 6 L. Blood pressure was 93/49. LUNGS: Clear except for some rales at the bases a little more on the right than on the left. HEART: His heart has regular rate. EXTREMITIES: No edema. LABORATORY DATA: His lab shows an H and H of 10.7 and 33, white cell count 10,300 with 75% segs, 9% lymphocytes, and a platelet count of 224,000. Sodium 136, potassium is 4, BUN 32, creatinine 0.96, glucose is 79, uric acid 7.1, C- reactive protein is 1.52, down from a high of 11.83 on 08/09. Albumin 2.6. ASSESSMENT: 1. Severe generalized weakness. a. Following hospitalization for COVID pneumonia. b. Primarily bed confined due to drop in oxygen saturation with exertion in spite of O2 supplementation. 2. COVID pneumonia. a. Hospitalized at [facility] from 08/11 until 08/25/2020. Treated with IV remdesivir and Decadron. b. Onset of symptoms around 08/07/2020. c. Complicated by hypoxic respiratory failure still requiring supplemental O2 presently at 6 L by nasal cannula with O2 saturation 93% to 95%. 3. Has completed 20 days of isolation, remains afebrile as of 08/27/2020. 4. Nonischemic cardiomyopathy. 5. Chronic atrial fibrillation. a. Rate control, regular rate that is pacemaker driven. 6. Chronic systolic congestive heart failure. a. Complicated by some acute congestive failure with some rales at the bases and small bilateral pleural effusions. 7. Insomnia. 8. Obstructive sleep apnea. 9. Hypertension. PLAN: We will remove the patient from isolation since he has been isolated from onset of his symptoms for 21 days. Continue O2 supplementation and continue routine medication. Activities will still be very restricted due to his hypoxemia that is exacerbated with exertion. Job ID: [id number] [facility]
[2020-08-27] MEDS: Montelukast Sodium 10 mg Tablet PO SCH (20:20)
[2020-08-27] MEDS: Mirtazapine 15 MG TAB PO SCH (20:20)
[2020-08-27] MEDS: Acetaminophen 325 MG TAB PO PRN (20:21)
[2020-08-27] MEDS: Cholecalciferol 1,000 UNITS (25 MCG) TAB PO SCH (20:22)
[2020-08-27] MEDS: Melatonin 3 MG TAB PO SCH (20:22)
[2020-08-27] MEDS: Zinc Gluconate 50 MG TAB PO SCH (20:23)
[2020-08-27] MEDS: Latanoprost 0.005% Ophth Soln 2.5 ml Bottle L EYE SCH (20:23)
[2020-08-28] MEDS: Trospium 20 MG TAB PO SCH (08:30)
[2020-08-28] MEDS: Allopurinol 100 MG TAB PO SCH ×2 (08:30→20:35)
[2020-08-28] MEDS: Carvedilol 6.25 MG TAB PO SCH ×2 (08:30→21:00)
[2020-08-28] MEDS: Multivit, Therapeutic 1 TAB PO SCH (08:30)
[2020-08-28] MEDS: Apixaban 5 MG TAB PO SCH ×2 (08:30→20:35)
[2020-08-28] MEDS: methylPREDNISolone 4 mg Tablet PO SCH (08:30)
[2020-08-28] MEDS: Spironolactone 25 MG TAB PO SCH (08:30)
[2020-08-28] MEDS: Furosemide 40 MG TAB PO SCH (08:31)
[2020-08-28] MEDS: Ascorbic Acid 500 mg Chewable Tablet PO SCH (08:35)
[2020-08-28 09:57] LABS: Bilirubin Negative (Negative); Blood, Urine Moderate (Negative); Clarity Cloudy (Clear); Glucose, Urine (Dipstick) Negative (Negative); Ketone, Urine Negative (Negative); Leukocyte Large (Negative); Nitrite Positive (Negative); Protein, Urine (Dipstick) 100 mg/dL (Neg-Trace)
[2020-08-28 09:58] LABS: Bacteria/HPF 2+ HPF (None Seen); Squamous Epithelial 0-3 HPF (0-3); WBC/HPF Greater Than 50 HPF (0-3)
[2020-08-28 09:59] LABS: Urine Culture Reflex Yes Yes
--- NOTE | 2020-08-28 11:14 | PRG ---
DATE OF SERVICE: 08/28/2020 SUBJECTIVE: The patient seemed to rest a little better yesterday after receiving the lorazepam 0.5 mg. He also seemed to sleep a lot better last night. He had received the lorazepam then too along with the mirtazapine and the melatonin. He has still required the supplemental O2. This has ranged from 4 L up to 7 L by nasal cannula. OBJECTIVE: GENERAL: The patient is lying in bed with the head of the bed elevated. He looks sleepy, but he does answer questions appropriately and he does not appear in any acute distress. VITAL SIGNS: His temp is 97.4, pulse 63, respirations 18, O2 saturation 93% on 6 L, his blood pressure is 115/54. LUNGS: Clear except for some mild rales at the bases. HEART: Regular rate. EXTREMITIES: No edema. ASSESSMENT: 1. Severe generalized weakness: a. Following a hospitalization for COVID pneumonia. b. Primarily bed confined, due to an episode of a drop in O2 saturation with exertion in spite of O2 supplementation. c. The patient is a little more stable, but still bed confined and wanting to try to do a little bit more as of 08/28/2020. 2. COVID pneumonia. a. Hospitalized at [facility] from 08/11 until 08/25/2020, treated with IV remdesivir and Decadron. b. Onset of symptoms around 08/07/2020. c. Complicated by hypoxic respiratory failure, still requiring supplemental O2, presently at 6 L by nasal cannula with O2 saturation around 93% as on 08/28/20. d. Has completed 20 days of isolation. Remains afebrile as of 08/28/2020. 3. Nonischemic cardiomyopathy. 4. Chronic atrial fibrillation. a. Rate control, regular rate that is pacemaker driven. 5. Chronic systolic congestive heart failure. a. Complicated by some mild acute congestive failure with some rales at bases and a small bilateral pleural effusion, stable as 08/28/20. 6. Insomnia. a. Improved as of 08/28. 7. Obstructive sleep apnea. 8. Hypertension. 9. Suprapubic catheter for urinary retention. a. Last change out on 08/26/20. PLAN: The patient looks a little better today, but just is very weak and a little sleepy this morning. We will continue present care. The patient is still requiring up to 6 L of O2 by nasal cannula. He apparently had been on 6 to 7 L of high-flow nasal cannula when at [facility]. His activities are very limited, he is bed confined. He has asked to see if physical therapy could work with him. We will ask them to see him, but maybe do just a little range of motion and if tolerated, maybe gradual advancement and see what his tolerance is. Job ID: [id number]
[2020-08-28] MEDS: Acetaminophen 325 MG TAB PO PRN (14:59)
[2020-08-28] MEDS: Lorazepam 0.5 MG TAB PO PRN (15:00)
[2020-08-28] MEDS: Hydrocortisone Acetate 25 MG Suppository PR PRN (15:57)
[2020-08-28] MEDS: Ciprofloxacin 500 MG TAB PO SCH (20:35)
[2020-08-28] MEDS: Cholecalciferol 1,000 UNITS (25 MCG) TAB PO SCH (20:36)
[2020-08-28] MEDS: Melatonin 3 MG TAB PO SCH (20:36)
[2020-08-28] MEDS: Latanoprost 0.005% Ophth Soln 2.5 ml Bottle L EYE SCH (20:36)
[2020-08-28] MEDS: Mirtazapine 15 MG TAB PO SCH (20:37)
[2020-08-28] MEDS: Zinc Sulfate 220 MG CAP PO SCH (20:38)
[2020-08-28] MEDS: Montelukast Sodium 10 mg Tablet PO SCH (20:38)
[2020-08-29] MEDS: Ciprofloxacin 500 MG TAB PO SCH ×2 (05:13→20:51)
[2020-08-29] MEDS: methylPREDNISolone 4 mg Tablet PO SCH (08:27)
[2020-08-29] MEDS: Ascorbic Acid 500 mg Chewable Tablet PO SCH (08:27)
[2020-08-29] MEDS: Furosemide 40 MG TAB PO SCH ×3 (08:27→15:20)
[2020-08-29] MEDS: Trospium 20 MG TAB PO SCH (08:27)
[2020-08-29] MEDS: Spironolactone 25 MG TAB PO SCH (08:28)
[2020-08-29] MEDS: Allopurinol 100 MG TAB PO SCH ×2 (08:28→20:51)
[2020-08-29] MEDS: Multivit, Therapeutic 1 TAB PO SCH (08:28)
[2020-08-29] MEDS: Apixaban 5 MG TAB PO SCH ×2 (08:28→20:52)
[2020-08-29] MEDS: Carvedilol 6.25 MG TAB PO SCH ×2 (08:29→20:51)
--- NOTE | 2020-08-29 09:51 | PRG ---
DATE OF SERVICE: 08/29/2020 SUBJECTIVE: The patient said that he did not feel like he is quite getting enough air. His said he slept good last night. Yesterday, he did try to work a little bit with therapy, but it just caused too much fatigue and shortness of breath and it was stopped. He is not having any chest pain. He is not coughing any. OBJECTIVE: GENERAL: The patient is sitting up in bed. He is alert, talkative. He does not appear dyspneic. He has no trouble completing his sentences. VITAL SIGNS: Showed temperature 97.4, pulse 73, respirations 22, O2 saturation 97% on 7 L by nasal cannula, blood pressure 98/56. Blood pressure earlier this morning was 104/55, O2 saturation 95% on 6 L. LUNGS: The anterior chest is clear. Posterior chest has bibasilar rales. HEART: Regular rate. EXTREMITIES: No edema. ASSESSMENT: 1. Severe generalized weakness. a. Following hospitalization for COVID pneumonia. b. Primarily bed confined, the exertion causes increase shortness of breath and drop in O2 saturation. 2. COVID pneumonia. a. Hospitalized at [facility] from 08/11/2020 until 08/25/2020, treated with IV remdesivir and Decadron. b. Onset of symptoms around 08/07/2020. c. Complicated by hypoxic respiratory failure, still requiring supplemental O2 at 6 to 7 L by nasal cannula with O2 saturation now up to 97% as of 08/29/2020. d. Completed 20-day of isolation. This was stopped on 08/28/2020. 3. Nonischemic cardiomyopathy. a. Complicated by some acute congestive heart failure manifest with the increased sense of shortness of breath, bibasilar rales and last chest x-ray showing small bilateral pleural effusions as of 08/29/2020. 4. Chronic atrial fibrillation. a. Rate controlled and has regular rate, pacemaker driven. 5. Chronic systolic congestive heart failure. a. Complicated by some acute congestive heart failure as of 08/29/2020. 6. Insomnia. a. Improved as of 08/29/2020. 7. Obstructive sleep apnea. 8. Hypertension. 9. Suprapubic catheter for urinary retention. a. Last changed out on 08/26/2020. b. Complicated by urinary tract infection, for which started on Cipro 08/28/2020. PLAN: The patient has experienced a little bit more sense of shortness of breath, but does not appear to be short of breath. He is having some improvement in his O2 saturation. We will try to keep this at 6 L or less by nasal cannula. We will increase his Lasix to 40 mg b.i.d., repeat electrolytes and BNP in the morning. Job ID: [id number]
--- NOTE | 2020-08-29 17:24 | RAD ---
Portable frontal chest radiograph: 08/29/2020 COMPARISON: 08/26/2020 HISTORY: Covid pneumonia and congestive heart failure FINDINGS: Stable transvenous pacing device. No pneumothorax. Stable prominence of the cardiac silhoue tte. Stable blunting of the costophrenic angle suggests pleural thickening and/or small bilateral pleural effusions. Stable airspace disease noted in the right perihilar region, the mid right lung zo ne, and within both lung bases. IMPRESSION: Stable appearance of the chest as described above.
[2020-08-29] MEDS: Lorazepam 0.5 MG TAB PO PRN (17:38)
[2020-08-29] MEDS: Zinc Sulfate 220 MG CAP PO SCH (20:50)
[2020-08-29] MEDS: Melatonin 3 MG TAB PO SCH (20:52)
[2020-08-29] MEDS: Montelukast Sodium 10 mg Tablet PO SCH (20:52)
[2020-08-29] MEDS: Mirtazapine 15 MG TAB PO SCH (20:52)
[2020-08-29] MEDS: Latanoprost 0.005% Ophth Soln 2.5 ml Bottle L EYE SCH (20:54)
[2020-08-29] MEDS: Cholecalciferol 1,000 UNITS (25 MCG) TAB PO SCH (20:54)
[2020-08-30] MEDS: Ciprofloxacin 500 MG TAB PO SCH ×2 (06:20→20:28)
[2020-08-30 06:50] LABS: Hemoglobin 10.7 g/dL (14.0-18.0); Mean Corpuscular Hemoglobin 31.5 pg (27.0-31.0); Mean Corpuscular Volume 98.1 fL (78.0-98.0); Red Blood Cell (RBC) Count 3.38 mill/uL (4.70-6.10); White Blood Cell (WBC) Count 9.9 thou/uL (4.8-10.8)
[2020-08-30 06:51] LABS: Mean Corpuscular HGB CONC 32.1 g/dL (32.0-36.0); Mean Platelet Volume 6.3 fL (7.4-10.4); Platelet Count 225 thou/uL (130-400); RBC Distribution Width 13.6 % (11.5-14.5)
[2020-08-30 06:54] LABS: Manual Diff?? YES
[2020-08-30 06:55] LABS: #Eosinphils 0.6 thou/uL (0.0-0.7); #Monocytes 0.8 thou/uL (0.11-0.59); #Neutrophils 7.5 thou/uL (1.40-6.50); %Basophils 1.7 % (0.0-1.0); %Eosinophils 5.7 % (0.0-10.0); %Lymphocytes 9.2 % (21.0-51.0); %Monocytes 8.2 % (0.0-10.0); %Neutrophils 75.2 % (42.0-75.0)
[2020-08-30 06:56] LABS: #Basophils 0.2 thou/uL (0.0-0.2); MDiff Complete? YES
[2020-08-30 07:01] LABS: Chloride 100 mmol/L (98-107); Potassium 3.9 mmol/L (3.5-5.1); Sodium 138 mmol/L (136-145)
[2020-08-30 07:02] LABS: Anion Gap 12 mmol/L (10-20); BUN (Urea Nitrogen) 24 mg/dL (8.4-25.7); Calc. Creatinine Clearance 55 mL/min (70-130); Calcium 8.6 mg/dL (7.8-10.44); Carbon Dioxide 30 mmol/L (23-31); Glucose 99 mg/dL (83-110)
[2020-08-30 07:03] LABS: CRP (Inflammatory) 4.58 mg/dL (= or < 0.5)
[2020-08-30 08:26] LABS: #Lymphocytes 0.9 thou/uL (1.20-3.40)
[2020-08-30] MEDS: Furosemide 40 MG TAB PO SCH ×2 (09:11→14:54)
[2020-08-30] MEDS: Spironolactone 25 MG TAB PO SCH (09:11)
[2020-08-30] MEDS: Allopurinol 100 MG TAB PO SCH ×2 (09:11→20:29)
[2020-08-30] MEDS: Carvedilol 6.25 MG TAB PO SCH ×2 (09:11→20:29)
[2020-08-30] MEDS: Apixaban 5 MG TAB PO SCH ×2 (09:11→20:28)
[2020-08-30] MEDS: Trospium 20 MG TAB PO SCH (09:11)
[2020-08-30] MEDS: Multivit, Therapeutic 1 TAB PO SCH (09:11)
[2020-08-30] MEDS: methylPREDNISolone 4 mg Tablet PO SCH (09:12)
[2020-08-30] MEDS: Ascorbic Acid 500 mg Chewable Tablet PO SCH (09:12)
--- NOTE | 2020-08-30 11:57 | PRG ---
DATE OF SERVICE: 08/30/2020 SUBJECTIVE: The patient's , Bernadette said that he slept good, but during the night tried to get up. He had gotten up where he was sitting on the side of the bed, but was helped back down. He had excellent urinary output much more than he has been during the night. This morning, he said that he is still having trouble getting a good deep breath, but he looks very comfortable and he falls back to sleep during the interview. OBJECTIVE: GENERAL: He does not appear dyspneic or in any distress. VITAL SIGNS: Temperature of 97.5, pulse 65, respirations are 20, O2 saturation early this morning was 98 on 6 L, this morning is 91 on 6 L, blood pressure 104/55. LUNGS: The anterior chest has good breath sounds and is clear. Posterior chest, there are still some rales at the left base, but there are less. The right posterior base sounds much better and has minimal rales. EXTREMITIES: No edema. LABORATORY DATA: Lab work this morning showed H and H of 10.7/33.2, white cell count 9900 with 75% segs, 9% lymphocytes, platelet count of 225. Sodium 138, potassium 3.9, BUN 24, creatinine 1.02. His glucose was 99. His BNP was 627. C-reactive protein went up to 4.5. His chest x-ray looks stable and unchanged from the exam of 08/26. He still has some blunting of the costophrenic angle suggestive of small bilateral pleural effusions or pleural thickening. He also still has an airspace disease in the right perihilar region in the mid right lung zone in the lung bases that is unchanged. ASSESSMENT: 1. Severe generalized weakness. a. Following hospitalization for COVID pneumonia. b. Primarily at bedrest. Much exertion causes increased shortness of breath, but he is doing some minimal work within his tolerance with PT and OT as of 08/30/2020. 2. COVID pneumonia. a. Hospitalized at [facility] from 08/11/2020 until 08/25/2020, treated with IV remdesivir and Decadron. b. Onset of symptoms around 08/07/2020. c. Complicated by hypoxic respiratory failure that has been protracted and still requiring O2 at 6 L by nasal cannula. d. Completed 20 days of isolation as of 08/28/2020 and isolation discontinued. 3. Nonischemic cardiomyopathy. a. Complicated by chronic congestive heart failure with some acute failure that is a little improved as of 08/30/2020 with increased urinary output and 5-pound drop in weight. 4. Chronic atrial fibrillation. a. Rate controlled with regular rate, pacemaker driven. 5. Insomnia. a. Controlled. 6. Obstructive sleep apnea. 7. Hypertension. 8. Suprapubic catheter for urinary retention. a. Last change out 08/26/2020. 9. Urinary tract infection. a. Urine culture growing a gram-negative zaid as of 08/30/2020. b. On Cipro 500 mg b.i.d. PLAN: I think, the patient is a little better. He has had a very protracted course from this COVID pneumonia with the hypoxic respiratory failure. The hypoxic failure persists and he continues to require supplemental O2 at around 6 L by nasal cannula. There is a component of congestive failure that is contributing to this that is being treated and seems a little better this morning. I had increased his furosemide to 40 mg b.i.d., which he seems to be tolerating well. Physical therapy will continue to try to work with him within his tolerance, expect this will be a protracted course and hopefully will see gradual improvement in his chronic hypoxic failure. The patient and his , Bernadette are very happy to be here and are certainly not interested in going back over to [place] as long as things can be managed reasonably here. Job ID: [id number]
[2020-08-30] MEDS: Montelukast Sodium 10 mg Tablet PO SCH (20:29)
[2020-08-30] MEDS: Melatonin 3 MG TAB PO SCH (20:30)
[2020-08-30] MEDS: Zinc Sulfate 220 MG CAP PO SCH (20:30)
[2020-08-30] MEDS: Mirtazapine 15 MG TAB PO SCH (20:31)
[2020-08-30] MEDS: Cholecalciferol 1,000 UNITS (25 MCG) TAB PO SCH (20:32)
[2020-08-30] MEDS: Latanoprost 0.005% Ophth Soln 2.5 ml Bottle L EYE SCH (20:34)
[2020-08-30] MEDS: Acetaminophen 325 MG TAB PO PRN (21:47)
[2020-08-31] MEDS: Ciprofloxacin 500 MG TAB PO SCH (05:56)
[2020-08-31] MEDS: Cefdinir 300 MG CAP PO SCH ×2 (08:59→20:39)
[2020-08-31] MEDS: Apixaban 5 MG TAB PO SCH ×2 (09:00→20:37)
[2020-08-31] MEDS: Allopurinol 100 MG TAB PO SCH ×2 (09:00→20:37)
[2020-08-31] MEDS: Multivit, Therapeutic 1 TAB PO SCH (09:00)
[2020-08-31] MEDS: Ascorbic Acid 500 mg Chewable Tablet PO SCH (09:00)
[2020-08-31] MEDS: Saccharomyces boulardii 250 MG CAP PO SCH (09:00)
[2020-08-31] MEDS: Trospium 20 MG TAB PO SCH (09:00)
[2020-08-31] MEDS: methylPREDNISolone 4 mg Tablet PO SCH (09:00)
[2020-08-31] MEDS: Furosemide 40 MG TAB PO SCH ×2 (09:00→14:04)
[2020-08-31] MEDS: Carvedilol 6.25 MG TAB PO SCH ×2 (09:01→20:38)
[2020-08-31] MEDS: Spironolactone 25 MG TAB PO SCH (09:01)
--- NOTE | 2020-08-31 09:22 | PRG ---
DATE OF SERVICE: 08/31/2020 SUBJECTIVE: This morning, the patient said he is feeling better. His said he had a good night. Yesterday, he worked a little bit with Physical Therapy and for very short period, he was able to sit on the side of the bed. He seemed to tolerate it well, but then O2 saturation dropped and as soon as he laid back, this recovered. This morning, he is not complaining of any shortness of breath. He has had a little cough with eating and taking his pills. Speech Therapy evaluated him and he is on nectar thickened liquids. OBJECTIVE: GENERAL: The patient looks better this morning. He appears in no distress. VITAL SIGNS: His temperature is 97.8, pulse 76, respirations 18, O2 saturation has been 94% on 6 L, blood pressure 105/67. His output has been 2000 over the last 24 hours. Weight down to 153. LUNGS: Clear anteriorly. The left posterior base is clear. There are minimal rales in the right posterior base. Chest sounds better. HEART: Regular rate. EXTREMITIES: No edema. ASSESSMENT: 1. Severe generalized weakness. a. Following hospitalization for COVID pneumonia. b. Primarily at bedrest, but beginning again to be able to work with physical therapy and tolerating sitting on the bedside for a very short period as of 08/31/2020. 2. COVID pneumonia. a. Hospitalized at [facility] from 08/11/2020 until 08/25/2020. Treated with IV remdesivir, Decadron, supplemental O2. b. Onset of symptoms around 08/07/2020. c. Complicated by hypoxic respiratory failure that has been protracted and still requiring O2 at approximately 6 L by nasal cannula. d. Completed 20 days of isolation as of 08/28/2020, and it was then discontinued. 3. Nonischemic cardiomyopathy. a. Complicated by chronic congestive heart failure with some acute failure that is improving as of 08/31/2020. The patient has had increased urinary output and further weight loss. 4. Chronic atrial fibrillation. a. Rate controlled with regular rate that is pacemaker driven. 5. Insomnia. a. Controlled. 6. Obstructive sleep apnea. 7. Hypertension. 8. Suprapubic catheter for urinary retention. a. Last change out 08/26/2020. 9. Urinary tract infection. a. Urine culture growing Pseudomonas aeruginosa, only intermediate sensitivity to Cipro, sensitive to ceftazidime and cefepime. PLAN: The patient is making some gradual improvement. We will continue his present care. We will stop the Cipro and place patient on Omnicef. Continue the efforts with PT and OT. Job ID: [id number]
[2020-08-31] MEDS: Lorazepam 0.5 MG TAB PO PRN (15:40)
[2020-08-31] MEDS: Latanoprost 0.005% Ophth Soln 2.5 ml Bottle L EYE SCH (20:39)
[2020-08-31] MEDS: Cholecalciferol 1,000 UNITS (25 MCG) TAB PO SCH (20:39)
[2020-08-31] MEDS: Melatonin 3 MG TAB PO SCH (20:40)
[2020-08-31] MEDS: Zinc Sulfate 220 MG CAP PO SCH (20:40)
[2020-08-31] MEDS: Montelukast Sodium 10 mg Tablet PO SCH (20:40)
[2020-08-31] MEDS: Mirtazapine 15 MG TAB PO SCH (20:40)
[2020-09-01] MEDS: Acetaminophen 325 MG TAB PO PRN ×3 (01:02→22:02)
[2020-09-01] MEDS: Lorazepam 0.5 MG TAB PO PRN ×2 (01:05→22:01)
[2020-09-01 05:31] LABS: Hemoglobin 9.7 g/dL (14.0-18.0); Platelet Count 205 thou/uL (130-400)
[2020-09-01] MEDS: Cefdinir 300 MG CAP PO SCH ×2 (08:57→20:48)
[2020-09-01] MEDS: Saccharomyces boulardii 250 MG CAP PO SCH (08:57)
[2020-09-01] MEDS: Trospium 20 MG TAB PO SCH (08:58)
[2020-09-01] MEDS: Allopurinol 100 MG TAB PO SCH ×2 (08:58→20:49)
[2020-09-01] MEDS: Apixaban 5 MG TAB PO SCH ×2 (08:58→20:49)
[2020-09-01] MEDS: Multivit, Therapeutic 1 TAB PO SCH (08:58)
[2020-09-01] MEDS: methylPREDNISolone 4 mg Tablet PO SCH (08:58)
[2020-09-01] MEDS: Furosemide 40 MG TAB PO SCH ×2 (09:00→14:23)
[2020-09-01] MEDS: Ascorbic Acid 500 mg Chewable Tablet PO SCH (09:08)
[2020-09-01] MEDS: Carvedilol 6.25 MG TAB PO SCH ×2 (11:45→20:46)
[2020-09-01] MEDS: Spironolactone 25 MG TAB PO SCH (11:45)
--- NOTE | 2020-09-01 12:17 | PRG ---
DATE OF SERVICE: 09/01/2020 SUBJECTIVE: The patient had a good night. He is working a little bit with physical therapy and tolerating a little bit more activity puga. He is sleepy this morning after he had his breakfast and the PT session. His blood pressure was a little on the low side and BP medications were held. Speech Therapy has seen patient, because he was having a little trouble with some coughing with eating, and he has been switched to a pureed diet with nectar thickened liquids. OBJECTIVE: GENERAL: The patient is sitting up in bed. He looks sleepy, but in no acute distress. VITAL SIGNS: His temp is 97.8, pulse 65, respirations 20, O2 saturation 94% on 5 L, blood pressure on the left arm was 89/44, the right arm 92/51. LUNGS: Anteriorly have good breath sounds and are clear. Posteriorly at the bases there are some minimal fine rales present. HEART: Regular rate. EXTREMITIES: No edema. LABORATORY DATA: His H and H this morning was 9.7 and 30.2, platelet count 207, creatinine 1.13, GFR 62. His output over the last 24 hours has been 1200. His weight is 153, down from a high of 165. ASSESSMENT: 1. Severe generalized weakness. a. Following hospitalization for COVID pneumonia. b. Primarily at bedrest, but he is working a little bit with physical therapy and sitting for a little longer periods on the side of the bed as of 09/01/20. Activities have been limited by his hypoxic respiratory failure. 2. COVID pneumonia. a. Hospitalized at [facility] from 08/11/2020 until 08/25/2020, treated with IV remdesivir, Decadron with supplemental O2. b. Onset of symptoms around 08/07/2020. c. Complicated by hypoxic respiratory failure, recovery has been very protracted. Still requiring O2, but has been able to reduce that now to 5 L by nasal cannula with O2 saturation of 94% on 09/01/20. d. Completed 20 days of isolation on 08/28/20. 3. Nonischemic cardiomyopathy. a. Complicated by chronic congestive heart failure with some acute failure that is improving as of 09/01/20. Weight has dropped from 161 to 153 and on admission was 165. 4. Chronic atrial fibrillation. a. Rate controlled, the patient has regular rate, is pacemaker driven. 5. Insomnia, controlled. 6. Obstructive sleep apnea. 7. Hypertension. 8. Suprapubic catheter for urinary retention. a. Last catheter change out 08/26/20. 9. Urinary tract infection. a. Urine culture growing Pseudomonas aeruginosa with intermediate sensitivity to Cipro and sensitive to ceftazidime and cefepime. PLAN: Overall, patient is making some gradual progress, but the progress had been limited by the protracted hypoxemia that is requiring the supplemental O2. This has been able to be reduced a little bit and I think some of this is from the improvement in his CHF. We will continue efforts with PT and OT. This morning his pressure was a little low. I have held his antihypertensive medications, and will see if we can set a parameter to hold these if his systolic pressure is less than 95. Job ID: [id number]
[2020-09-01] MEDS: Cholecalciferol 1,000 UNITS (25 MCG) TAB PO SCH (20:45)
[2020-09-01] MEDS: Mirtazapine 15 MG TAB PO SCH (20:47)
[2020-09-01] MEDS: Zinc Sulfate 220 MG CAP PO SCH (20:48)
[2020-09-01] MEDS: Melatonin 3 MG TAB PO SCH (20:50)
[2020-09-01] MEDS: Latanoprost 0.005% Ophth Soln 2.5 ml Bottle L EYE SCH (20:50)
[2020-09-01] MEDS: Montelukast Sodium 10 mg Tablet PO SCH (20:52)
[2020-09-02] MEDS: methylPREDNISolone 4 mg Tablet PO SCH (08:26)
[2020-09-02] MEDS: Carvedilol 6.25 MG TAB PO SCH ×2 (08:26→21:10)
[2020-09-02] MEDS: Trospium 20 MG TAB PO SCH (08:26)
[2020-09-02] MEDS: Ascorbic Acid 500 mg Chewable Tablet PO SCH (08:26)
[2020-09-02] MEDS: Apixaban 5 MG TAB PO SCH ×2 (08:26→21:06)
[2020-09-02] MEDS: Spironolactone 25 MG TAB PO SCH (08:26)
[2020-09-02] MEDS: Allopurinol 100 MG TAB PO SCH ×2 (08:26→21:06)
[2020-09-02] MEDS: Cefdinir 300 MG CAP PO SCH ×2 (08:26→21:06)
[2020-09-02] MEDS: Multivit, Therapeutic 1 TAB PO SCH (08:26)
[2020-09-02] MEDS: Furosemide 40 MG TAB PO SCH ×2 (08:27→14:07)
[2020-09-02] MEDS: Saccharomyces boulardii 250 MG CAP PO SCH (08:27)
[2020-09-02] MEDS: Zinc Sulfate 220 MG CAP PO SCH (21:06)
[2020-09-02] MEDS: Melatonin 3 MG TAB PO SCH (21:07)
[2020-09-02] MEDS: Mirtazapine 15 MG TAB PO SCH (21:08)
[2020-09-02] MEDS: Cholecalciferol 1,000 UNITS (25 MCG) TAB PO SCH (21:09)
[2020-09-02] MEDS: Montelukast Sodium 10 mg Tablet PO SCH (21:10)
[2020-09-02] MEDS: Latanoprost 0.005% Ophth Soln 2.5 ml Bottle L EYE SCH (21:50)
[2020-09-02] MEDS: Lorazepam 0.5 MG TAB PO PRN (22:23)
--- NOTE | 2020-09-03 06:48 | PRG ---
DATE OF SERVICE: 09/02/2020 SUBJECTIVE: Patient is feeling better this morning. He did not complain of any shortness of breath. He does get a little confused late in the afternoon and a little bit agitated. He has been using the Ativan late in the evening and this does help relax him and it does help him sleep for a few hours each night. He is trying to participate with physical therapy and doing just a little more, but has not been able to advance beyond sitting on the side of the bed dangling his feet. He did ask about when he could go home. OBJECTIVE: GENERAL: The patient looks better this morning. He is in no distress. VITAL SIGNS: His temperature is 98, pulse 65, respirations 20, O2 saturation 98% on 5 L, he is being pulled down to 4 L, blood pressure 100/53, and he has received all his medications this morning. His output has been 750. His weight is stable at 154. LUNGS: Clear anterior and posterior and even at the bases. HEART: Regular rate. EXTREMITIES: No edema. ASSESSMENT: 1. Severe generalized weakness. a. Following hospitalization for COVID pneumonia with hypoxic respiratory failure. b. Primarily at bedrest but he has been progressed to where he can sit and dangle on the side of the bed for short periods. 2. COVID pneumonia. a. Hospitalized at [facility] from 08/11 until 08/25/20, treated with IV remdesivir, Decadron, and supplemental O2. b. Onset of symptoms around 08/07/20. c. Complicated by hypoxic respiratory failure. Recovery has been very protracted and continuing to require supplemental O2. This morning, his O2 on 5 L by nasal cannula was up to 98 on 09/02/20. d. Completed 20 days of isolation, 08/28/20. 3. Nonischemic cardiomyopathy. a. Complicated by chronic congestive heart failure with some acute failure that is resolving as of 09/02/20. Weight is stable at 154, down from admission weight of 161. 4. Chronic atrial fibrillation. a. Rate controlled. The patient has regular rate that is pacemaker driven. 5. Insomnia, controlled. 6. Obstructive sleep apnea. 7. Hypertension. 8. Suprapubic catheter for urinary retention. a. Last catheter change on 08/26/20. 9. Urinary tract infection. a. Urine culture grew Pseudomonas aeruginosa with intermediate sensitivity to Cipro and sensitive to ceftazidime and cefepime. PLAN: The patient is making some gradual progress. His O2 saturation is improving. We will try reducing his nasal cannula to 4 L. PT will continue to try to work with him. Told patient once his O2 saturation is able to be maintained on around 2 L and that his functional capabilities are little better where his could manage him in the home, will then be able to go home. Our goals are to take care of him in the home upon his discharge. That is of course his 's wishes too. Job ID: [id number]
[2020-09-03] MEDS: Multivit, Therapeutic 1 TAB PO SCH (08:32)
[2020-09-03] MEDS: Apixaban 5 MG TAB PO SCH ×2 (08:32→20:39)
[2020-09-03] MEDS: Trospium 20 MG TAB PO SCH (08:32)
[2020-09-03] MEDS: Ascorbic Acid 500 mg Chewable Tablet PO SCH (08:32)
[2020-09-03] MEDS: Cefdinir 300 MG CAP PO SCH ×2 (08:32→20:40)
[2020-09-03] MEDS: methylPREDNISolone 4 mg Tablet PO SCH (08:32)
[2020-09-03] MEDS: Saccharomyces boulardii 250 MG CAP PO SCH (08:32)
[2020-09-03] MEDS: Allopurinol 100 MG TAB PO SCH ×2 (08:33→20:38)
[2020-09-03] MEDS: Furosemide 40 MG TAB PO SCH ×2 (09:00→13:33)
[2020-09-03] MEDS: Spironolactone 25 MG TAB PO SCH (09:00)
[2020-09-03] MEDS: Carvedilol 6.25 MG TAB PO SCH ×2 (09:00→20:45)
[2020-09-03] MEDS: Lorazepam 0.5 MG TAB PO PRN (13:33)
[2020-09-03] MEDS: Mirtazapine 15 MG TAB PO SCH (20:39)
[2020-09-03] MEDS: Zinc Sulfate 220 MG CAP PO SCH (20:40)
[2020-09-03] MEDS: Montelukast Sodium 10 mg Tablet PO SCH (20:40)
[2020-09-03] MEDS: Melatonin 3 MG TAB PO SCH (20:41)
[2020-09-03] MEDS: Cholecalciferol 1,000 UNITS (25 MCG) TAB PO SCH (20:42)
[2020-09-03] MEDS: Hydrocortisone Acetate 25 MG Suppository PR PRN (20:46)
[2020-09-03] MEDS: Latanoprost 0.005% Ophth Soln 2.5 ml Bottle L EYE SCH (21:20)
[2020-09-04] MEDS: Acetaminophen 325 MG TAB PO PRN ×2 (04:58→13:10)
[2020-09-04] MEDS: Cefdinir 300 MG CAP PO SCH ×2 (08:30→21:45)
[2020-09-04] MEDS: Trospium 20 MG TAB PO SCH (08:31)
[2020-09-04] MEDS: Saccharomyces boulardii 250 MG CAP PO SCH (08:31)
[2020-09-04] MEDS: Furosemide 40 MG TAB PO SCH ×2 (08:32→14:00)
[2020-09-04] MEDS: Multivit, Therapeutic 1 TAB PO SCH (08:32)
[2020-09-04] MEDS: Spironolactone 25 MG TAB PO SCH (08:32)
[2020-09-04] MEDS: Apixaban 5 MG TAB PO SCH ×2 (08:32→21:46)
[2020-09-04] MEDS: Allopurinol 100 MG TAB PO SCH ×2 (08:32→21:46)
[2020-09-04] MEDS: Carvedilol 6.25 MG TAB PO SCH ×2 (08:33→21:43)
[2020-09-04] MEDS: Polyethylene Glycol 3350 17 GM Packet PO SCH (08:37)
[2020-09-04] MEDS: Hydrocortisone Acetate 25 MG Suppository PR PRN ×2 (08:37→13:11)
[2020-09-04] MEDS: Ascorbic Acid 500 mg Chewable Tablet PO SCH (08:37)
[2020-09-04 11:19] VITALS: BMI 20.5
[2020-09-04] MEDS: Lorazepam 0.5 MG TAB PO PRN (11:58)
[2020-09-04] MEDS: Temazepam 15 MG CAP PO SCH ×2 (21:43→21:54)
[2020-09-04] MEDS: Montelukast Sodium 10 mg Tablet PO SCH (21:43)
[2020-09-04] MEDS: Hyoscyamine Sulfate SL 0.125 mg Tablet PO PRN (21:44)
[2020-09-04] MEDS: Zinc Sulfate 220 MG CAP PO SCH (21:44)
[2020-09-04] MEDS: Mirtazapine 15 MG TAB PO SCH (21:46)
[2020-09-04] MEDS: Cholecalciferol 1,000 UNITS (25 MCG) TAB PO SCH (21:47)
[2020-09-04] MEDS: Simethicone Chewable 80 MG TAB PO PRN (21:47)
[2020-09-04] MEDS: Latanoprost 0.005% Ophth Soln 2.5 ml Bottle L EYE SCH (21:56)
[2020-09-05] MEDS: Lorazepam 0.5 MG TAB PO PRN (01:27)
--- NOTE | 2020-09-05 05:42 | PRG ---
DATE OF SERVICE: 09/04/2020 SUBJECTIVE: The patient said he is doing better, is having a little trouble with some constipation and required some help with some digital disimpaction last evening. His breathing has been doing better. He had no complaints of shortness of breath this morning. He has been able to reduce his O2 to 2 L by nasal cannula and tolerating this well. OBJECTIVE: GENERAL: The patient is lying in bed, but just weak and tired. He appears comfortable and in no distress. VITAL SIGNS: His temp is 97.7, pulse 80, respirations 22, O2 saturation 93% on 2 L, blood pressure 96/51. His weight yesterday was 151. LUNGS: Clear. HEART: Regular rate. ASSESSMENT: 1. Severe generalized weakness. a. Following hospitalization for COVID pneumonia with hypoxic respiratory failure. b. Primarily at bed rest, but has been progressing where he can sit and dangle on the side of the bed for short periods. 2. COVID pneumonia. a. Hospitalized at [facility] from 08/11 until 08/25/2020. Treated with IV remdesivir, Decadron, and supplemental O2. b. Onset of symptoms around 08/07/2020. c. Complicated by hypoxic respiratory failure. Recovery has been very protracted and requiring supplemental O2. O2 saturation improving where now he is tolerating 2 L by nasal cannula with O2 saturation of 93% on 09/04/2020. d. Completed 20-day period of isolation on 08/28/2020. 3. Nonischemic cardiomyopathy. a. Complicated by chronic congestive heart failure and some acute failure that has resolved as of 09/04/2020. Weight is 151 as of 09/04/2020. 4. Chronic atrial fibrillation. a. Rate controlled. The patient has regular rate that is pacemaker driven. 5. Insomnia, better. 6. Obstructive sleep apnea. 7. Hypertension. 8. Suprapubic catheter for urinary retention. a. Last catheter change, 08/26/2020. 9. Urinary tract infection. a. Urine grew Pseudomonas aeruginosa with intermediate sensitivity to Cipro and sensitive to ceftazidime and cefepime. 10. Constipation. PLAN: We will continue present care. We will stop his Medrol. We will place the patient on MiraLAX daily. I have encouraged him to try incentive spirometry to help with some atelectasis at the bases of the lungs. Continue PT and OT. Job ID: [id number]
[2020-09-05] MEDS ORDERED: risperiDONE 0.5 MG TAB PO SCH (09:00)
[2020-09-05] MEDS: Polyethylene Glycol 3350 17 GM Packet PO SCH (09:04)
[2020-09-05] MEDS: Multivit, Therapeutic 1 TAB PO SCH (09:04)
[2020-09-05] MEDS: Trospium 20 MG TAB PO SCH (09:04)
[2020-09-05] MEDS: Saccharomyces boulardii 250 MG CAP PO SCH (09:04)
[2020-09-05] MEDS: Cefdinir 300 MG CAP PO SCH ×2 (09:05→21:20)
[2020-09-05] MEDS: Spironolactone 25 MG TAB PO SCH (09:05)
[2020-09-05] MEDS: risperiDONE 0.5 MG TAB PO SCH ×3 (09:05→21:20)
[2020-09-05] MEDS: Carvedilol 6.25 MG TAB PO SCH ×2 (09:06→21:20)
[2020-09-05] MEDS: Furosemide 40 MG TAB PO SCH ×2 (09:06→15:19)
[2020-09-05] MEDS: Apixaban 5 MG TAB PO SCH ×2 (09:06→21:20)
[2020-09-05] MEDS: Hyoscyamine Sulfate SL 0.125 mg Tablet PO PRN ×2 (09:06→15:19)
[2020-09-05] MEDS: Allopurinol 100 MG TAB PO SCH ×2 (09:06→21:19)
[2020-09-05] MEDS: Ascorbic Acid 500 mg Chewable Tablet PO SCH (09:48)
--- NOTE | 2020-09-05 11:56 | PRG ---
DATE OF SERVICE: 09/05/2020 SUBJECTIVE: I visited with the patient and his last evening. He is very restless and he has been agitated, said he is wanting to go home. He has been complaining of some intermittent spasms across the lower abdomen and perirectal area. His bowels have been moving good. He had had a constipated stool and required some disimpaction several days ago, but since then the bowels are moving good. He says he is not sleeping. He was given some Tylenol No. 3 to use, if needed for his pain that he was complaining of and also some hyoscyamine sublingual, if needed for the spasms and simethicone. He also was given a trial of Restoril 15 mg to see if it would help him sleep. Now on the morning of 09/05/2020, the nurses and therapists have helped him up in a chair per his request. First time he has been up in a month. He says he slept good, but his said he was very restless. He had episodes of confusion, thought he was walking in the bone, thought he had multiple phones in his bed. said that these episodes of confusion though have been going on off and on ever since he has been in the hospital here and at the [facility] with the COVID pneumonia. There was a hard time even getting him settled and relaxed. According to the patient though he slept good. OBJECTIVE: GENERAL: The patient is sitting up in a chair and he seemed to be comfortable there. His O2 saturation on 3 L had been 93% earlier this morning, but once in the chair, it dropped to 78, his oxygen was increased to 50% by Venturi mask and it only came up in the low 80s. He eventually got very tired and was placed back in bed. The patient appears very weak. His says he is not eating. He does not like the thickened liquids. VITAL SIGNS: This morning show that his temp is 97.6, pulse 74, respirations 18, O2 saturation was 93% on 3 L, his blood pressure of 100/62. These were from 1 a.m. Vitals from this morning pending. LUNGS: Clear. HEART: Regular rate. ASSESSMENT: 1. Severe generalized weakness. a. Following hospitalization for COVID pneumonia with hypoxic respiratory failure. b. Primarily at bedrest. This morning, was able to sit up for short period, but has significant drop in his O2 saturation to 78 to 80 even with supplemental O2 on the morning of 09/05. 2. COVID infection. a. Hospitalized at [facility] from 08/11 until 08/25/2020 for COVID pneumonia and treated with IV remdesivir, Decadron, supplemental O2. b. Onset of symptoms around 08/07/2020. c. Complicated by hypoxic respiratory failure that has persisted and has required supplemental O2. This had been able to be reduced to 3 L by nasal cannula as long as he is in bed. d. Completed a 20 day course of isolation on 08/28/2020. e. Complicated by a COVID cephalopathy, manifested with restlessness, confusion and hallucinations that seems to be a little worse as of 09/05/2020. 3. Chronic atrial fibrillation. a. Rate control. The patient has a regular rate, this is pacemaker driven. 4. Nonischemic cardiomyopathy. a. Complicated by chronic congestive heart failure. Recent acute congestive heart failure had resolved as of 09/04/2020. 5. Insomnia. 6. Obstructive sleep apnea. 7. Hypertension. 8. Urinary retention. a. Requires suprapubic catheter. b. Last change out was 08/26/2020. 9. Urinary tract infection. a. A urine grew Pseudomonas aeruginosa with sensitivity to Cipro, intermediate, but sensitive to ceftazidime and cefepime. PLAN: The patient's condition has been one of some gradual deterioration. He is having increased restlessness and continual episodes of some hallucinations. We had to put him on Ativan, which seemed to have helped some and then to try him on the Restoril last night. Do not know if this has contributed to any of the symptoms since he had such a restless night. I visited with the patient's and she realizes that his condition has been very slow, protracted. He had had some days where he looked better, but lately he has not been doing very well. We will stop the Ativan and the Restoril in the event this is contributing to the restlessness and we will try him on risperidone to see if this will help with his COVID encephalopathic symptoms and give him a little larger dose at night to see if this would help him sleep. I will continue efforts with PT and OT. Continue the supplemental O2. Job ID: [id number]
[2020-09-05] MEDS: Acetaminophen/Codeine 30-300mg Tablet PO PRN (15:20)
[2020-09-05] MEDS ORDERED: Melatonin 3 MG TAB PO PRN (21:05)
[2020-09-05] MEDS: Zinc Sulfate 220 MG CAP PO SCH (21:18)
[2020-09-05] MEDS: Mirtazapine 15 MG TAB PO SCH (21:20)
[2020-09-05] MEDS: Montelukast Sodium 10 mg Tablet PO SCH (21:20)
[2020-09-05] MEDS: Latanoprost 0.005% Ophth Soln 2.5 ml Bottle L EYE SCH (21:23)
[2020-09-05] MEDS: Cholecalciferol 1,000 UNITS (25 MCG) TAB PO SCH (21:27)
[2020-09-06] MEDS: Acetaminophen/Codeine 30-300mg Tablet PO PRN ×2 (05:15→12:30)
[2020-09-06] MEDS: Hydrocortisone Acetate 25 MG Suppository PR PRN (05:15)
[2020-09-06] MEDS: Furosemide 40 MG TAB PO SCH ×2 (09:33→15:37)
[2020-09-06] MEDS: Polyethylene Glycol 3350 17 GM Packet PO SCH (09:33)
[2020-09-06] MEDS: risperiDONE 0.5 MG TAB PO SCH ×3 (09:34→21:57)
[2020-09-06] MEDS: Allopurinol 100 MG TAB PO SCH ×2 (09:34→21:57)
[2020-09-06] MEDS: Ascorbic Acid 500 mg Chewable Tablet PO SCH (09:34)
[2020-09-06] MEDS: Cefdinir 300 MG CAP PO SCH ×2 (09:34→21:57)
[2020-09-06] MEDS: Apixaban 5 MG TAB PO SCH ×2 (09:34→21:57)
[2020-09-06] MEDS: Saccharomyces boulardii 250 MG CAP PO SCH (09:34)
--- NOTE | 2020-09-06 09:34 | PRG ---
DATE OF SERVICE: 09/06/2020 SUBJECTIVE: The patient was a little restless through the night, but did finally sleep some along with his . He is sleeping this morning, did not awaken him. He had some episodes of the spasm around the rectum and took the hyoscyamine, which seemed to give him relief. OBJECTIVE: GENERAL: The patient is sleeping, appears comfortable. VITAL SIGNS: Earlier in the night, his O2 saturation was 96% on 3 L and blood pressure 122/58, temp 97.8. Vitals this morning pending. LUNGS: Anterior chest clear. HEART: Regular rate. ASSESSMENT: 1. Severe generalized weakness. a. Following hospitalization for COVID pneumonia with hypoxic respiratory failure. b. Primarily at bedrest. Any attempt of getting up out of bed resulted in a marked decline in O2 saturation. c. Condition had improved, but last few days has been one of gradual decline as of 09/06/2020. 2. COVID infection. a. Hospitalized at [facility] from 08/11 until 09/04/2020 for COVID pneumonia and treated with IV remdesivir, Decadron and supplemental O2. b. Onset of symptoms around 08/07/2020. c. Complicated by hypoxic respiratory failure that has persisted and required continual supplemental O2 ranging from 2-6 L by nasal cannula. d. Completed 20-day course of isolation 08/28. e. Complicated by COVID encephalopathy manifest with restlessness, confusion and hallucination that is stable. The risperidone was started on 09/05/2020. 3. Chronic atrial fibrillation. a. Rate control and is pacemaker driven. 4. Nonischemic cardiomyopathy. a. Complicated by chronic congestive heart failure, recent acute CHF that has resolved as of 09/04/2020. 5. Obstructive sleep apnea. 6. Hypertension. 7. Urinary retention. a. Requires suprapubic catheter, the last change out 09/05/2020. 8. Urinary tract infection. a. Urine culture grew Pseudomonas aeruginosa sensitive to Cipro was intermediate but sensitive to ceftazidime and cefepime. PLAN: Patient's condition had improved a little bit during his hospital stay, but over the last few days, he has had a gradual decline. It seems that his COVID encephalopathy is worse. He is at times restless and was hallucinating. This may be a little better since initiation of the risperidone yesterday. He is still requiring supplemental O2, usually can get by on 2 to 3 L when he is at bed rest, any activities, then this will drop. He is not eating very much and he is wanting to go home. His yesterday has visited with counter sales representative from the [facility] program who said they could assist her with all the equipment and help in the home. She is tentatively looking to maybe make that move to home on 09/08/2020. The patient's condition had been one of very slow gradual improvement, but last few days have been days of decline. His long-term prognosis is not good. I do not know if he will ever recover from this COVID infection, for which he has had the persistent diffusion issues of the lungs with the chronic hypoxemia along with his nonischemic cardiomyopathy. Job ID: [id number]
[2020-09-06] MEDS: Carvedilol 6.25 MG TAB PO SCH ×2 (09:35→21:57)
[2020-09-06] MEDS: Trospium 20 MG TAB PO SCH (09:35)
[2020-09-06] MEDS: Spironolactone 25 MG TAB PO SCH (09:36)
[2020-09-06] MEDS: Multivit, Therapeutic 1 TAB PO SCH (09:36)
[2020-09-06] MEDS: Hyoscyamine Sulfate SL 0.125 mg Tablet PO PRN (12:30)
[2020-09-06] MEDS ORDERED: Melatonin 3 MG TAB PO SCH (21:00)
[2020-09-06] MEDS: Mirtazapine 15 MG TAB PO SCH (21:57)
[2020-09-06] MEDS: Zinc Sulfate 220 MG CAP PO SCH (21:57)
[2020-09-06] MEDS: Cholecalciferol 1,000 UNITS (25 MCG) TAB PO SCH (21:57)
[2020-09-06] MEDS: Montelukast Sodium 10 mg Tablet PO SCH (21:57)
[2020-09-06] MEDS: Latanoprost 0.005% Ophth Soln 2.5 ml Bottle L EYE SCH (21:58)
[2020-09-07] MEDS: Carvedilol 6.25 MG TAB PO SCH (08:39)
[2020-09-07] MEDS: Furosemide 40 MG TAB PO SCH (08:46)
[2020-09-07] MEDS: Spironolactone 25 MG TAB PO SCH (08:47)
[2020-09-07] MEDS: Simethicone Chewable 80 MG TAB PO PRN (08:47)
[2020-09-07] MEDS: Polyethylene Glycol 3350 17 GM Packet PO SCH (08:47)
[2020-09-07] MEDS: Cefdinir 300 MG CAP PO SCH (08:48)
[2020-09-07] MEDS: Allopurinol 100 MG TAB PO SCH (08:48)
[2020-09-07] MEDS: risperiDONE 0.5 MG TAB PO SCH ×3 (08:48→21:59)
[2020-09-07] MEDS: Trospium 20 MG TAB PO SCH (08:48)
[2020-09-07] MEDS: Multivit, Therapeutic 1 TAB PO SCH (08:48)
[2020-09-07] MEDS: Apixaban 5 MG TAB PO SCH (08:49)
[2020-09-07] MEDS ORDERED: Carvedilol 6.25 MG TAB PO SCH (09:00)
[2020-09-07] MEDS: Ascorbic Acid 500 mg Chewable Tablet PO SCH (10:35)
[2020-09-07] MEDS: Saccharomyces boulardii 250 MG CAP PO SCH (10:35)
--- NOTE | 2020-09-07 10:55 | PRG ---
DATE OF SERVICE: 09/07/2020 SUBJECTIVE: The patient's is with him. The patient had a restful night. He has been much calmer. This morning, he is propped up in bed. He looks comfortable and was talking to me some. He is not complaining of any pain. He has had several bowel movements. He has had sometimes the spasms even in the rectal area or bladder and he takes the hyoscyamine and this seems to work very well. OBJECTIVE: GENERAL: The patient is propped up in bed. He is alert and talkative. He looks very calm and restful. VITAL SIGNS: His temperature has been 97.8. His O2 saturation has been up to 95% on 6 L, they will be trying to bring this down to a little lower. Pressure has been low during the night, it has been in the 70s over 40. His blood pressure medicines were held this morning. LUNGS: Clear anteriorly. There are some rales at the bases. HEART: Regular rate. ASSESSMENT: 1. Severe generalized weakness. a. Following hospitalization for COVID pneumonia with hypoxic respiratory failure. b. Bed confined since this infection. c. Condition has been one of gradual decline as of 09/07/2020. 2. COVID infection. a. Hospitalized at [facility] from 08/11 until 09/04/2020 for COVID pneumonia, treated with IV remdesivir, Decadron, and supplemental O2. b. Onset of symptoms around 08/07/2020. c. Complicated by persistent hypoxic respiratory failure that has required continued supplemental O2 anywhere from 2 to 6 L by nasal cannula. d. Completed 20-day course of isolation on 08/28. e. Complicated by COVID encephalopathy manifest with restlessness, confusion, hallucination. I. Improved with the addition of the risperidone and very calm as of the morning of 09/07/2020. 3. Chronic atrial fibrillation. a. Rate controlled, pacemaker driven. 4. Nonischemic cardiomyopathy. a. Complicated by recent acute congestive heart failure that improved as of 09/04/2020. No signs of acute failure as of 09/07. 5. Obstructive sleep apnea. 6. Hypertension. a. Presently hypotensive. 7. Urinary retention. a. Requires suprapubic catheter, last changed out 09/05. 8. Urinary tract infection. a. Culture grew Pseudomonas aeruginosa, sensitivity showed Cipro is intermediate and sensitive to ceftazidime and cefepime. 9. General decline in patient's condition with continued need for supplemental O2, hypotensive and complicated with the COVID encephalopathy. PLAN: The patient's condition has been one of continual decline. He still requires the supplemental O2 and blood pressure has been low. He looks very calm and the restlessness and the hallucinations seem to be well controlled since the addition of the risperidone. Arrangements are being prepared for him to go home tomorrow 09/08 under hospice, will go through and eliminate nonessential medications. We will hold antihypertensives when blood pressure low. Prognosis is very poor. Job ID: [id number]
[2020-09-07] MEDS: Acetaminophen/Codeine 30-300mg Tablet PO PRN (11:52)
[2020-09-07] MEDS ORDERED: Morphine 10 MG/0.5 ML ORAL SYRINGE SL PRN (14:16)
[2020-09-07] MEDS ORDERED: Lorazepam 1 MG TAB SL PRN (14:18)
[2020-09-07] MEDS: Morphine 10 MG/0.5 ML ORAL SYRINGE SL PRN (16:12)
[2020-09-07] MEDS: Latanoprost 0.005% Ophth Soln 2.5 ml Bottle L EYE SCH (21:59)
[2020-09-08] MEDS: Morphine 10 MG/0.5 ML ORAL SYRINGE SL PRN ×2 (01:10→12:29)
--- NOTE | 2020-09-08 05:51 | PRG ---
DATE OF SERVICE: 09/07/2020 The patient's condition has been one of continual gradual decline. His blood pressure has been consistently around 177/44, his pulse is in the 80s. His O2 saturation has been 95% on 4 L, any lower than that, even at 3 L, it will drop down to 90%. He has been very restless and states he just hurts all over. His condition is one of continual decline and primarily now trying to manage his comfort. Most of his medicines are all being held other than medicines for comfort. We will add Roxanol 20 mg per 1 mL to use 0.5 to 1 mL every hour as needed for pain or restlessness and Ativan 1 mg sublingual every 4 hours as needed. Tentatively, patient is scheduled to go home tomorrow under hospice. With his decline, I am not sure that this will be feasible. Job ID: [id number]
[2020-09-08 09:05] VITALS: BP 77/42; TEMP 98.3
[2020-09-08] MEDS: risperiDONE 0.5 MG TAB PO SCH ×2 (09:37→14:33)
--- NOTE | 2020-09-10 11:40 | DIS ---
DATE OF ADMISSION: 08/25/2020 DATE OF DISCHARGE: 09/08/2020 FINAL DIAGNOSES: 1. Severe generalized weakness. a. Following hospitalization for COVID pneumonia with prolonged hypoxic respiratory failure. b. Leaving him bed confined since this infection. c. Condition temporarily improved and then has had marked decline and being discharged under hospice care as of 09/08/2020. 2. COVID infection. a. Hospitalized at [facility] from 08/11 until 09/04/2020 for COVID pneumonia that was treated with IV remdesivir, Decadron, and supplemental O2. b. Onset of symptoms around 08/07/2020. c. Complicated by persistent hypoxic respiratory failure that has required continuous supplemental O2, initially at 6 to 7 L by nasal cannula upon his admission to [facility] on 08/25/2020. d. Completed 20-day course of isolation on 08/28/2020. e. Complicated by COVID encephalopathy, manifest with restlessness, confusion, and hallucinations. f. His condition temporarily improved, but has been one of a steady decline with increased weakness, hypotension, and persistent requirements of supplemental O2 as of 09/08/2020. 3. Chronic atrial fibrillation. a. Rate controlled, pacemaker driven. 4. Nonischemic cardiomyopathy. a. Complicated by recent acute congestive heart failure. 5. Obstructive sleep apnea. 6. Hypertension. a. During the last few days, this was complicated by hypotension, off all medications. 7. Urinary retention. a. Requires suprapubic catheter, last change out 09/05/2020. 8. Urinary tract infection. a. Treated with 7-day course of cefdinir. 9. Severe generalized decline where he has stopped eating. He has been hypotensive, remains hypoxic. a. Has elected for palliative hospice care in the home. SUMMARY: Mr. Santoyo is a very pleasant 85-year-old white male, whom I have helped take care of for many years. He has a history of chronic atrial fibrillation with a pacemaker that is pacemaker driven, nonischemic cardiomyopathy with suppressed ejection fraction and frequent episodes of congestive heart failure. He also has hypertension, obstructive sleep apnea, and urinary retention that has required a suprapubic catheter. He had become ill with viral syndrome type symptoms around the July. Initial COVID test was negative, which was a rapid test. His SARS-CoV-2 PCR test that was taken returned later 2 days after as positive. He re-presented to the emergency room because of increasing symptoms of shortness of breath and cough and fever and was admitted at the [facility] on 08/11/2020 with COVID pneumonia, complicated by hypoxic respiratory failure and some elements of congestive failure. He had a protracted stay there until 08/25/2020. He was treated with IV remdesivir, Decadron, and supplemental O2. He required high-flow O2 by nasal cannula and required throughout his hospital stay. Gradually, he was able to be reduced to 3 L by nasal cannula. He was very anxious to get out of the hospital and come back to [place] to the Extended Care. He was admitted in [facility] on 08/25/2020. Here, he was very weak and was in complete bedrest and had been unable to get up out of bed or even tolerate sitting on the side of the bed. Efforts to work with him, even minimally, even trying to sit up in bed and dangle on the side resulted in marked decline in his O2 saturation into the 70%. Lying him down and raising his O2 gradually up to 7 L by nasal cannula, he was comfortable and O2 saturation in the 94% to 95%. Any efforts towards therapy were met with drop in his O2 saturation. His followup chest x-ray still showed evidence of COVID infiltrates diffusely and also some small pleural effusion. He did have some elevation of his BNP, and thought to have not only the trouble from his post COVID pneumonia with the diffusion defect, but also with some element of congestive failure. He continued to require supplemental O2. Gradually, this was able to be decreased to where he could tolerate O2 by nasal cannula at 3 to 4 L. He was also given increased furosemide and had increased diuresis and actually breathing felt little better and he was no longer complaining of sensation of shortness of breath. His condition seemed to improve temporarily and he seemed to be tolerating some PT in bed. He still had episodes where he would get short of breath and require increased dose of O2. He had some trouble eating and was on just a soft diet with thickened liquids which he did not like. He had a lot of episodes, particularly late in the afternoon and evening where he would become more confused and agitated and hallucinating and also said he just was not sleeping. Had tried just low-dose of Ativan to help and eventually put him on risperidone to help with the agitation and hallucinations and a little larger dose at night. With this, he seemed to rest a little better and be a little calmer. His condition over the last few days of admission were one of steady decline with steady drop in his blood pressure into the 70s. His O2 saturation at rest still would be in the low 90s. He was able to be gradually reduced to 2 to 4 L by nasal cannula with O2 saturation remaining in the mid 90%. Patient has been very tired and worn out from the hospitalization and just felt he was not getting better and just wanted to go home and had mentioned going under hospice care. His had been in attendance throughout his hospitalization staying with him and had also been with him through part of the hospitalization in [facility]. His condition was one of decline. He basically quit eating. After stopping all his cardiovascular medicines, the blood pressure did come up, but only into the 80s. He was able to maintain an O2 saturation in the mid 90s with 2 to 3 L by nasal cannula. He was extremely weak and still at bedrest. His care had been relegated to just palliative care and arrangements were made for him to go home under hospice care and placed him on morphine sublingual, which seemed to work very well for restlessness and pain and shortness of breath. He also was restarted on the lorazepam and this was used for episodes of agitation, which seemed to work very well. The patient will be discharged on 09/08/2020 under hospice care in his home. His prognosis is very poor. DISPOSITION: DIET: Soft diet with ground meats, nectar thickened liquids, according to his desire. Patient is taking in very little liquids, will be spoon fed. ACTIVITIES: Patient is bed confined, will be in a hospital bed with the head of the bed elevated at least 30 degrees. He will be positioned according to comfort. He has a suprapubic catheter, which will need to be changed monthly, last change out was on 09/05/2020. Mouth care as needed. MEDICATIONS: 1. Liquid tears 1 to 2 drops in the eyes as needed for dryness. 2. Levsin sublingual 0.125 mg every 4 hours as needed for bladder spasms or abdominal cramping. 3. Lorazepam 1 mg sublingual every 4 hours as needed. 4. Morphine 20 mg/1 mL 0.5 to 1 mL every 1 hour as needed for pain, restlessness, or shortness of breath sublingual. 5. Latanoprost 0.005% one drop in left eye at bedtime. 6. Simethicone 40 mg every 4 hours as needed. 7. Risperidone 0.25 mg at 9 a.m. and 3 p.m., risperidone 0.5 mg at bedtime. 8. O2 by nasal cannula at 2 to 4 L as needed. FOLLOWUP: Hospice will mixing picker tender with the patient's care. The patient has a hospital bed and O2. CODE STATUS: DNR. Job ID: [id number] [id number]
== END 2020-09-08 15:40 | disposition home or self-care (01) | DRG 947 ==
LOC: MADMS 17:31
PROVIDERS: ADMIT Family Medicine; ATTEND Family Medicine
DX: R53.1 Weakness (principal); U07.1 COVID-19; J12.82 Pneumonia due to coronavirus disease 2019; I50.23 Acute on chronic systolic (congestive) heart failure; J96.91 Respiratory failure, unspecified with hypoxia; I48.20 Chronic atrial fibrillation, unspecified; I42.8 Other cardiomyopathies; I13.0 Hypertensive heart and chronic kidney disease with heart failure and stage 1 through stage 4 chronic kidney disease, or unspecified chronic kidney disease; N39.0 Urinary tract infection, site not specified; Z66 Do not resuscitate; Z51.5 Encounter for palliative care; K59.00 Constipation, unspecified; N18.9 Chronic kidney disease, unspecified; G47.00 Insomnia, unspecified; J30.9 Allergic rhinitis, unspecified; G47.33 Obstructive sleep apnea (adult) (pediatric); M10.9 Gout, unspecified; Z86.16 Personal history of COVID-19; R33.9 Retention of urine, unspecified; Z95.810 Presence of automatic (implantable) cardiac defibrillator; Z74.01 Bed confinement status; R53.81 Other malaise
CPT/HCPCS: 36415; 36416; 71045; 80048; 80053; 81001; 82565; 83880; 84550; 85014; 85018; 85025; 85049; 86140; 87077; 87086; 87186; J7509